=== PATIENT | female | born 1940 | race Caucasian/White ===

== ENCOUNTER → 2020-09-09 | Outpatient (CLI) | payer MEDICARE, BC, SELFPAY ==
[2020-09-09 21:30] VITALS: BMI 34.7
[2020-09-09 21:51] LABS: Absolute Lymphocyte Count 3.11 X10^3/uL (0.83-4.51); Absolute Neutrophil Count 4.5 X10^3/uL (2.0-7.7); Basophil# 0.07 X10^3/uL; Basophil% 0.8 % (0-1); Eosinophil# 0.18 X10^3/uL; Eosinophils% 2.1 % (0-5); Hematocrit 45.8 % (37-47); Hemoglobin 14.6 g/dL (12.0-15.0); Lymphocyte # 3.11 X10^3/ul (4.0); Mean Corp Hgb Conc 31.9 g/dL (32-36); Mean Corpuscular Hgb 29.4 pg (27.0-32.0); Mean Corpuscular Volume 92.2 fL (81-99); Monocyte# 0.74 X10^3/uL; Monocyte% 8.6 % (0-10); NRBC Flagged by Analyzer 0 % (0-5); Neutrophil # 4.51 X10^3/uL (2.7-7.7); Neutrophil % 52.3 % (47-70); Platelet Count 302 K/mm3 (150-450); RBC Distribution Width CV 13.2 % (11.6-14.6); RBC Distribution Width SD 44.4 fl (35.1-43.9); Red Blood Count 4.97 M/mm3 (4.2-5.4); White Blood Count 8.6 K/mm3 (4.4-11.0)
[2020-09-12 15:24] LABS: ANTINUCLEAR ANTIBODIES DIRECT Negative (Negative)
== END | disposition home or self-care (01) ==
PROVIDERS: PCP Nurse Practitioner; Visit Provider Nurse Practitioner
DX: L29.9 Pruritus, unspecified (principal); B99.9 Unspecified infectious disease
CPT/HCPCS: 85025; 86038; 86225; 86235

== ENCOUNTER → 2021-05-08 | Outpatient (CLI) | payer MEDICARE, BC, SELFPAY ==
[2021-05-08 21:35] LABS: Absolute Lymphocyte Count 2.79 X10^3/uL (0.83-4.51); Absolute Neutrophil Count 4.7 X10^3/uL (2.0-7.7); Basophil# 0.11 X10^3/uL; Basophil% 1.3 % (0-1); Eosinophil# 0.17 X10^3/uL; Hematocrit 46.3 % (37-47); Hemoglobin 15.2 g/dL (12.0-15.0); Lymphocyte # 2.79 X10^3/ul (0.83-4.51); Lymphocyte % 32.3 % (19-41); Mean Corp Hgb Conc 32.8 g/dL (32-36); Mean Corpuscular Hgb 30.2 pg (27.0-32.0); Mean Corpuscular Volume 91.9 fL (81-99); Mean Platelet Vol. 11.8 fl (6.2-12.0); Monocyte# 0.82 X10^3/uL; Monocyte% 9.5 % (0-10); NRBC Flagged by Analyzer 0 % (0-5); Neutrophil # 4.71 X10^3/uL (2.7-7.7); Neutrophil % 54.6 % (47-70); Platelet Count 268 K/mm3 (150-450); Red Blood Count 5.04 M/mm3 (4.2-5.4); White Blood Count 8.6 K/mm3 (4.4-11.0)
[2021-05-08 21:53] LABS: ALB/GLOB Ratio 0.9 RATIO (0.9-2.4); AST(SGOT) 24 U/L (15-37); Alanine Aminotransfer ALT/SGPT 30 U/L (13-56); Albumin, Serum 3.6 g/dL (3.2-5.0); Alkaline Phosphatase 87 U/L (45-117); Anion Gap 6 (5-15); BUN 25 mg/dL (7-18); Calcium,Total 9.8 mg/dL (8.5-10.1); Chloride 103 mmol/L (98-107); Cholesterol 168 mg/dL (200); Creatinine, Serum 1.04 mg/dL (0.55-1.02); EST Glomerular Filtration Rate 54 mL/min (>60); Est Glom Filt Rate - Afr Amer 66 mL/min (>60); Globulin 4.2 g/dL (2.2-4.2); Glucose 106 mg/dL (74-106); High Density Lipoprotein 62 mg/dL; Protein, Total 7.8 g/dL (6.4-8.2); Sodium Level 138 mmol/L (136-145); Triglycerides 264 mg/dL; Very Low Density Lipoprotein 53 mg/dL (5-40)
== END | disposition home or self-care (01) ==
PROVIDERS: PCP Nurse Practitioner; Referring Provider Nurse Practitioner; Visit Provider Nurse Practitioner
DX: I10 Essential (primary) hypertension (principal); E78.5 Hyperlipidemia, unspecified
CPT/HCPCS: 80053; 80061; 85025

== ENCOUNTER → 2022-05-04 | Outpatient (CLI) | payer MEDICARE, BC, SELFPAY ==
[2022-05-04 22:01] LABS: Absolute Lymphocyte Count 3.17 X10^3/uL (0.83-4.51); Absolute Neutrophil Count 3.9 X10^3/uL (2.0-7.7); Basophil# 0.08 X10^3/uL; Eosinophil# 0.16 X10^3/uL; Hematocrit 47.2 % (37-47); Hemoglobin 14.9 g/dL (12.0-15.0); Lymphocyte # 3.17 X10^3/ul (0.83-4.51); Lymphocyte % 38.8 % (19-41); Mean Corp Hgb Conc 31.6 g/dL (32-36); Mean Corpuscular Hgb 29.4 pg (27.0-32.0); Mean Corpuscular Volume 93.1 fL (81-99); Mean Platelet Vol. 11.1 fl (6.2-12.0); Monocyte# 0.84 X10^3/uL; Monocyte% 10.3 % (0-10); NRBC Flagged by Analyzer 0 % (0-5); Neutrophil % 47.7 % (47-70); Platelet Count 304 K/mm3 (150-450); RBC Distribution Width CV 13.5 % (11.6-14.6); RBC Distribution Width SD 45.3 fl (35.1-43.9); Red Blood Count 5.07 M/mm3 (4.2-5.4); White Blood Count 8.2 K/mm3 (4.4-11.0)
[2022-05-04 22:12] LABS: ALB/GLOB Ratio 0.9 RATIO (0.9-2.4); AST(SGOT) 23 U/L (15-37); Alanine Aminotransfer ALT/SGPT 34 U/L (13-56); Albumin, Serum 3.7 g/dL (3.2-5.0); Alkaline Phosphatase 79 U/L (45-117); Anion Gap 7 (5-15); BUN 16 mg/dL (7-18); BUN/Creat Ratio 19.3 RATIO (10-20); Calcium,Total 9.4 mg/dL (8.5-10.1); Chloride 104 mmol/L (98-107); Cholesterol 169 mg/dL (200); Creatinine, Serum 0.83 mg/dL (0.55-1.02); EST Glomerular Filtration Rate 71 mL/min (>60); Est Glom Filt Rate - Afr Amer 85 mL/min (>60); Globulin 4.1 g/dL (2.2-4.2); Glucose 77 mg/dL (74-106); High Density Lipoprotein 67 mg/dL; Potassium 4.4 mmol/L (3.5-5.1); Protein, Total 7.8 g/dL (6.4-8.2); Sodium Level 142 mmol/L (136-145); Triglycerides 112 mg/dL; Very Low Density Lipoprotein 22 mg/dL (5-40)
[2022-05-11 11:49] LABS: Vitamin D 1,25-Dihydroxy 36.5 pg/mL (24.8-81.5)
== END | disposition home or self-care (01) ==
PROVIDERS: PCP Nurse Practitioner; Visit Provider Nurse Practitioner
DX: E78.5 Hyperlipidemia, unspecified (principal); I10 Essential (primary) hypertension; L29.8 Other pruritus
CPT/HCPCS: 80053; 80061; 82652; 85025

== ENCOUNTER → 2023-04-08 | Outpatient (CLI) | payer MEDICARE, BC, SELFPAY ==
[2023-04-08 20:48] LABS: Absolute Lymphocyte Count 3.43 X10^3/uL (0.83-4.51); Absolute Neutrophil Count 4.6 X10^3/uL (2.0-7.7); Basophil# 0.07 X10^3/uL; Basophil% 0.8 % (0-1); Eosinophil# 0.17 X10^3/uL; Eosinophils% 1.9 % (0-5); Hematocrit 46.8 % (37-47); Hemoglobin 14.7 g/dL (12.0-15.0); Lymphocyte # 3.43 X10^3/ul (0.83-4.51); Lymphocyte % 37.8 % (19-41); Mean Corp Hgb Conc 31.4 g/dL (32-36); Mean Corpuscular Hgb 29.1 pg (27.0-32.0); Mean Corpuscular Volume 92.5 fL (81-99); Monocyte# 0.82 X10^3/uL; NRBC Flagged by Analyzer 0 % (0-5); Neutrophil # 4.56 X10^3/uL (2.7-7.7); Neutrophil % 50.3 % (47-70); Platelet Count 299 K/mm3 (150-450); RBC Distribution Width CV 13.1 % (11.6-14.6); RBC Distribution Width SD 44.4 fl (35.1-43.9); Red Blood Count 5.06 M/mm3 (4.2-5.4); White Blood Count 9.1 K/mm3 (4.4-11.0)
[2023-04-08 21:04] LABS: ALB/GLOB Ratio 0.9 RATIO (0.9-2.4); AST(SGOT) 19 U/L (15-37); Alanine Aminotransfer ALT/SGPT 31 U/L (13-56); Albumin, Serum 3.5 g/dL (3.2-5.0); Alkaline Phosphatase 90 U/L (45-117); Anion Gap 5 (5-15); BUN 20 mg/dL (7-18); BUN/Creat Ratio 21.2 RATIO (10-20); Calcium,Total 9.1 mg/dL (8.5-10.1); Chloride 103 mmol/L (98-107); Cholesterol 160 mg/dL (200); Creatinine, Serum 0.94 mg/dL (0.55-1.02); EST Glomerular Filtration Rate 61 mL/min (>60); Est Glom Filt Rate - Afr Amer 73 mL/min (>60); Glucose 132 mg/dL (74-106); High Density Lipoprotein 60 mg/dL; Potassium 3.6 mmol/L (3.5-5.1); Protein, Total 7.5 g/dL (6.4-8.2); Sodium Level 139 mmol/L (136-145); Triglycerides 170 mg/dL; Very Low Density Lipoprotein 34 mg/dL (5-40)
== END | disposition home or self-care (01) ==
PROVIDERS: PCP Nurse Practitioner; Referring Provider Nurse Practitioner; Visit Provider Nurse Practitioner
DX: I10 Essential (primary) hypertension (principal); E78.5 Hyperlipidemia, unspecified; L29.8 Other pruritus
CPT/HCPCS: 80053; 80061; 85025

== ENCOUNTER → 2024-07-13 | Outpatient (CLI) | payer MEDICARE, BC, SELFPAY ==
[2024-07-14 01:30] LABS: Absolute Lymphocyte Count 2.61 X10^3/uL (0.83-4.51); Absolute Neutrophil Count 4.4 X10^3/uL (2.0-7.7); Basophil% 1.2 % (0-1); Eosinophil# 0.15 X10^3/uL; Eosinophils% 1.9 % (0-5); Hematocrit 44.7 % (37-47); Hemoglobin 14.4 g/dL (12.0-15.0); Lymphocyte # 2.61 X10^3/ul (0.83-4.51); Lymphocyte % 32.6 % (19-41); Mean Corp Hgb Conc 32.2 g/dL (32-36); Mean Corpuscular Hgb 29.5 pg (27.0-32.0); Mean Corpuscular Volume 91.6 fL (81-99); Mean Platelet Vol. 11.9 fl (6.2-12.0); Monocyte# 0.76 X10^3/uL; Monocyte% 9.5 % (0-10); NRBC Flagged by Analyzer 0.2 % (0-5); Neutrophil # 4.37 X10^3/uL (2.7-7.7); Neutrophil % 54.6 % (47-70); Platelet Count 254 K/mm3 (150-450); RBC Distribution Width CV 12.8 % (11.6-14.6); RBC Distribution Width SD 42.9 fl (35.1-43.9); Red Blood Count 4.88 M/mm3 (4.2-5.4)
[2024-07-14 01:43] LABS: AST(SGOT) 25 U/L (15-37); Alanine Aminotransfer ALT/SGPT 31 U/L (13-56); Albumin, Serum 3.8 g/dL (3.2-5.0); Alkaline Phosphatase 72 U/L (45-117); Anion Gap 7 (5-15); BUN 21 mg/dL (7-18); BUN/Creat Ratio 24.2 RATIO (10-20); Calcium,Total 9.9 mg/dL (8.5-10.1); Chloride 104 mmol/L (98-107); Cholesterol 179 mg/dL (200); Creatinine, Serum 0.87 mg/dL (0.55-1.02); EST Glomerular Filtration Rate 67 mL/min (>60); Est Glom Filt Rate - Afr Amer 80 mL/min (>60); Globulin 3.9 g/dL (2.2-4.2); Glucose 101 mg/dL (74-106); High Density Lipoprotein 67 mg/dL; Potassium 4.2 mmol/L (3.5-5.1); Protein, Total 7.7 g/dL (6.4-8.2); Sodium Level 139 mmol/L (136-145); Triglycerides 186 mg/dL; Very Low Density Lipoprotein 37 mg/dL (5-40)
== END | disposition home or self-care (01) ==
PROVIDERS: PCP Nurse Practitioner; Referring Provider Nurse Practitioner; Visit Provider Nurse Practitioner
DX: E78.2 Mixed hyperlipidemia (principal); I10 Essential (primary) hypertension
CPT/HCPCS: 80053; 80061; 85025

== ENCOUNTER → 2025-05-13 | Outpatient (CLI) | payer MEDICARE, BC, SELFPAY ==
--- OUTSIDE RECORDS SUMMARY | 2025-05-13 22:25 | XMS RPT_ITS | CCD ---
Author Organization [facility] Care Team Providers Care Windows Consultant Name Role Phone HUMBERTO, CHUCK Unavailable Unavailable HUMBERTO, CHUCK Unavailable Unavailable HUMBERTO, CHUCK Unavailable Unavailable HUMBERTO, CHUCK Unavailable Unavailable [place] ARTIFICIAL INTELLIGENCE SPECIALIST, Jeffrey Referring Unavailable [place] ARTIFICIAL INTELLIGENCE SPECIALIST, Jeffrey Attending Unavailable [place] DELANEY, Jeffrey Primary Care Unavailable ADALID REYES Attending UnaJEFFREY Padilla Primary Care Unavailable Allergies Allergy Classification Reported Allergen(s) Allergy Type Date of Onset Reaction(s) Facility (2 sources) Lisinopril Drug Allergy 1 cough [facility] (1 source) Seafood Allergy to substance 1 vomits [facility] Work Phone: (2 sources) Fish derivative; Translations: [fish derived] Propensity to adverse reactions 2 Vomiting [facility] (3 sources) Shellfish; Translations: [shellfish derived] Propensity to adverse reactions 1 [facility] (1 source) Lisinopril Drug Allergy 1 [facility] Repository Medications Current Medications Medication Drug Class(es) Dates Sig (Normalized) Sig (Original) acyclovir 800 mg oral tablet (5 sources) Herpesvirus Nucleoside Analog DNA Polymerase Inhibitor, Herpes Simplex Virus Nucleoside Analog DNA Polymerase Inhibitor, Herpes Zoster Virus Nucleoside Analog DNA Polymerase Inhibitor Start: 05-08-2021 End: 04-08-2023 take 800 mg by mouth twice daily Acyclovir Active 800 MG PO TWICE A DAY April 08, 2023 6:03pm ascorbic acid 500 mg oral capsule (2 sources) Vitamin C Start: 09-09-2020 Ascorbic Acid (Vitamin C) Active MG PO September 08, 2020 11:00pm atorvastatin 20 mg oral tablet (7 sources) HMG-CoA Reductase Inhibitor Start: 09-09-2020 End: 04-08-2023 take 20 mg by mouth at bedtime Atorvastatin Active 20 MG PO AT BEDTIME April 08, 2023 6:03pm biotin 1 mg chewable tablet (2 sources) Start: 05-04-2022 take 1000 ug by mouth once daily Biotin Active 1000 MCG PO DAILY May 04, 2022 12:00am calcium carbonate 1500 mg oral tablet (2 sources) Start: 09-09-2020 take 1 tablet by mouth once daily Calcium Carbonate (Calcium 600) 600 mg calcium (1,500 mg) tablet Active 600 MG PO DAILY September 08, 2020 11:00pm cholecalciferol 0.05 mg oral capsule (2 sources) Vitamin D Start: 09-09-2020 take 50 ug by mouth once daily Cholecalciferol (Vitamin D3) Active 50 MCG PO DAILY September 08, 2020 11:00pm hydroCHLOROthiazide 12.5 mg / losartan potassium 100 mg oral tablet (7 sources) Thiazide Diuretic, Angiotensin 2 Receptor Maile Start: 09-09-2020 End: 04-08-2023 take 1 tablet by mouth once daily Losartan-Hydrochlor othiazide Active 1 TABLET PO DAILY April 08, 2023 6:03pm lysine 500 mg oral tablet (2 sources) Start: 09-09-2020 take 500 mg by mouth once daily Lysine Active 500 MG PO DAILY September 08, 2020 11:00pm Vitamin B Complex (B Complex-Vitamin B12) tablet (2 sources) Start: 09-09-2020 take 1 tablet by mouth once daily Vitamin B Complex (B Complex-Vitamin B12) tablet Active 1 TABLET PO DAILY September 08, 2020 11:00pm Completed/Discontinued Medications Medication Drug Class(es) Dates Sig (Normalized) Sig (Original) predniSONE 10 mg oral tablet (2 sources) Start: 09-09-2020 End: 09-13-2020 Prednisone Discontinued 20 MG PO TWICE A DAY 03 10September 08, 2020 11:00pm September 12, 2020 11:03pm 2 po bid 4D,1 po bid for 4 D, 1 po qd for 4D 1/2 po qd for2 D Problems Active Problems Problem Classification Problem Date Documented Date Episodic/Chronic Allergic reactions (2 sources) Eczema; Translations: [Dermatitis, unspecified] 09-09-2020 Episodic Coronary atherosclerosis and other heart disease (2 sources) Coronary atherosclerosis and other heart disease Onset: 05-04-2017 Disorders of lipid metabolism (4 sources) Hyperlipidemia, unspecified; Translations: [Hyperlipidemia] Onset: 05-04-2017 04-08-2023 Chronic Essential hypertension (2 sources) Hypertensive disorder; Translations: [Essential (primary) hypertension] 04-08-2023 Chronic Essential hypertension (1 source) Essential hypertension Onset: 11-28-2017 Immunizations and screening for infectious disease (2 sources) Needs influenza immunization; Translations: [Encounter for immunization] 03-16-2021 Episodic Other inflammatory condition of skin (2 sources) Pruritic rash; Translations: [Other pruritus] 09-09-2020 Episodic Spondylosis; intervertebral disc disorders; other back problems (2 sources) Occipital neuralgia; Translations: [Spinal stenosis, cervical region] Onset: 02-24-2025 Episodic Systemic lupus erythematosus and connective tissue disorders (2 sources) Systemic lupus erythematosus; Translations: [Systemic lupus erythematosus, unspecified] 09-09-2020 Chronic Unclassified (2 sources) Encntr for general adult medical exam w/o abnormal findings / Z00.00(ICD-9) Onset: 11-28-2017 Past or Other Problems Problem Classification Problem Date Documented Da te Episodic/Chronic Unclassified (1 source) Encntr for general adult medical exam w/o abnormal findings; Translations: [Encntr for general adult medical exam w/o abnormal findings] Onset: 11-28-2017 Results Test Name Value Interpretation Reference Range Facility CT BRAIN WO IVCONon 02-25-20 CT BRAIN WO IVCON * * *Final Report* * * DATE OF EXAM: Feb 24 2025 9:07PM [facility] 0504 - CT BRAIN WO IVCON / PROCEDURE REASON: Headache, sudden, severe * * * * Physician Interpretation * * * * EXAMINATION: CT CERVICAL SPINE WO IVCON, CT BRAIN WO IVCON CLINICAL HISTORY: Spinal stenosis, cervical, (occipital neuralgia) (accession [id number]), Headache, sudden, severe, severe right sided occiptal pain x 3 days, (occipital neuralgia) (accession [id number]) TECHNIQUE: Serial axial images without IV contrast were obtained from the vertex to the cervicothoracic junction. CT Radiation dose: Integrated Dose-Length Product (DLP) for this visit = 453.75 (accession [id number]), 1413.18 (accession [id number]) mGy*cm CT Dose Reduction Employed: No dose reduction techniques were required COMPARISON: None. RESULT: Attenuation and motion artifact limits evaluation some of the images. HEAD: Acute change: No evidence of an acute infarct or other acute parenchymal process. Hemorrhage: None visible. Mass Lesion / Mass Effect: There is no evidence of an intracranial mass or extraaxial fluid collection. No significant mass effect. Chronic change: Scattered patchy foci of low attenuation are present within supratentorial white matter which is a nonspecific finding but likely represents mild microvascular ischemia. Parenchyma: There is no significant volume loss. Ventricles: The ventricles are within normal limits of size and configuration for age. Paranasal sinuses and skull base: The visualized paranasal sinuses are grossly clear. The skull base and imaged soft tissues are unremarkable. CERVICAL SPINE: Motion artifact degrades detailed evaluation in the upper cervical spine. Alignment: Alignment is anatomic. Craniocervical junction: Craniocervical junction is normal. Osseous structures/fracture: No evidence of a lytic or blastic process in the visualized spine. No acute fractures are evident allowing for motion artifact. Cervical soft tissues: No acute findings. Left thyroid goiter. Degenerative changes: Moderate multilevel degenerative change with varying levels of spinal canal stenosis, up to moderate C6-7. Multilevel spondylotic neural foraminal narrowing; moderate left C4-5, right C5-6 IMPRESSION: No acute intracranial abnormality. Motion degraded cervical spine exam without convincing evidence of acute abnormality. 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 Date/Time: Feb 24 2025 9:28P Dictated by : NILSON ARMENDARIZ MD This examination was interpreted and the report reviewed and electronically signed by: NILSON ARMENDARIZ MD on Feb 24 2025 9:40PM EST [id number] CN Normal [facility] CT CERVICAL SPINE WO IVCONon 02-24-2025 CT CERVICAL SPINE WO IVCON * * *Final Report* * * DATE OF EXAM: Feb 24 2025 9:07PM [facility] 0505 - CT CERVICAL SPINE WO IVCON / PROCEDURE REASON: Spinal stenosis, cervical * * * * Physician Interpretation * * * * EXAMINATION: CT CERVICAL SPINE WO IVCON, CT BRAIN WO IVCON CLINICAL HISTORY: Spinal stenosis, cervical, (occipital neuralgia) (accession [id number]), Headache, sudden, severe, severe right sided occiptal pain x 3 days, (occipital neuralgia) (accession [id number]) TECHNIQUE: Serial axial images without IV contrast were obtained from the vertex to the cervicothoracic junction. CT Radiation dose: Integrated Dose-Length Product (DLP) for this visit = 453.75 (accession [id number]), 1413.18 (accession [id number]) mGy*cm CT Dose Reduction Employed: No dose reduction techniques were required COMPARISON: None. RESULT: Attenuation and motion artifact limits evaluation some of the images. HEAD: Acute change: No evidence of an acute infarct or other acute parenchymal process. Hemorrhage: None visible. Mass Lesion / Mass Effect: There is no evidence of an intracranial mass or extraaxial fluid collection. No significant mass effect. Chronic change: Scattered patchy foci of low attenuation are present within supratentorial white matter which is a nonspecific finding but likely represents mild microvascular ischemia. Parenchyma: There is no significant volume loss. Ventricles: The ventricles are within normal limits of size and configuration for age. Paranasal sinuses and skull base: The visualized paranasal sinuses are grossly clear. The skull base and imaged soft tissues are unremarkable. CERVICAL SPINE: Motion artifact degrades detailed evaluation in the upper cervical spine. Alignment: Alignment is anatomic. Craniocervical junction: Craniocervical junction is normal. Osseous structures/fracture: No evidence of a lytic or blastic process in the visualized spine. No acute fractures are evident allowing for motion artifact. Cervical soft tissues: No acute findings. Left thyroid goiter. Degenerative changes: Moderate multilevel degenerative change with varying levels of spinal canal stenosis, up to moderate C6-7. Multilevel spondylotic neural foraminal narrowing; moderate left C4-5, right C5-6 IMPRESSION: No acute intracranial abnormality. Motion degraded cervical spine exam without convincing evidence of acute abnormality. 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 She has been taking tylenol and ibuprofen and home that seem to help, a little with pain, but pain is now more intense and these episodes are happening more frequently. Patient localizes pain behind right ear. On assessment, is somewhat tender to area with redness under hair in that area but no obvious signs of rash or blister. Denies n/v/fevers/chills. VSS. Daughter at bedside. Normal [facility] ED PROV NOTEon 02-24-2025 ED PROV NOTE HNO ID: [id number] Author: ADALID REYES MD Service: Emergency Medicine Author Type: Physician Type: ED Provider Notes Filed: 02/25/2025 02:48 Note Text: ED Provider Note Patient Name: Antonia Thomson : 1940 SERVICE DATE: 02/24/25 History Patient presents with: Head Pain Patient presents to the ER with her daughter, with concerns of a right posterior neck pain. Patient does not take blood thinners. No trauma or injuries reported and patient's never had symptoms like this before. For the past 3 days, patient had very sharp, stabbing, electrical-like shooting pains in the back of her neck posterior head sometimes radiating around to her jaw. These seem to occur in paroxysms, and patient does not know what causes them. No dental pain, patient wears hearing aids without concerns or complaints. Patient does have some relief with Tylenol, Motrin last dose 3 PM of Tylenol today. Head Injury Location: Occipital Time since incident: 3 days Pain details: Quality: Sharp and stabbing Radiates to: upper head and occasionally the jaw. 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 Social History[1] ALLERGIES Allergen Reactions Shellfish Derived GI Upset Review of Systems HENT: Negative for hearing loss. Neurological: Negative for loss of consciousness, numbness and headaches. All other systems reviewed and are negative. Physical Exam Vitals [02/24/25 1936] BP Pulse Temp Temp src Resp SpO2 Weight Height 162/61 89 36.8 ?C (98.2 ?F) Temporal 16 (!) 94 % 89.9 kg (198 lb 3.2 oz) -- Physical Exam Vitals and nursing note reviewed. Constitutional: General: She is not in acute distress. Appearance: Normal appearance. She is not ill-appearing or toxic-appearing. HENT: Head: Normocephalic and atraumatic. Right Ear: Tympanic membrane, ear canal and external ear normal. There is no impacted cerumen. Ears: Comments: Right hearing aid is removed, tympanic membranes intact, no external canal swelling erythema no mastoid tenderness Nose: Nose normal. No congestion or rhinorrhea. Eyes: General: Right eye: No discharge. Left eye: No discharge. Extraocular Movements: Extraocular movements intact. Pulmonary: Effort: No respiratory distress. Musculoskeletal: Cervical back: Normal range of motion and neck supple. No rigidity or tenderness. Lymphadenopathy: Cervical: No cervical adenopathy. Skin: General: Skin is warm and dry. Comments: Patient has very mild area of erythema, posterior scalp and at the hairline, however there is no vesicular lesions, no papules, no shingles type lesions, no obvious masses, no breaks in the skin neck is supple no cervical lymphadenopathy Neurological: General: No focal deficit present. Mental Status: She is alert and oriented to person, place, and time. Mental status is at baseline. Comments: Symmetric face and smile Patient has strong right upper extremity muscle strength good range of motion no drift distal intact handgrip strength Psychiatric: Mood and Affect: Mood normal. Behavior: Behavior normal. Diagnostic Testing ED Labs Ordered and Reviewed - No data to display Procedures ED Course / Clinical Impression Clinical Impressions as of 02/25/25 0246 Occipital neuralgia of right side Spinal stenosis of cervical region MDM / Disposition / Plan 84-year-old female does not take blood thinners, presents the emergency department with concerns over right sided posterior occipital stabbing-like pain for the past 2 to 3 days. Patient has discrete paroxysms of these attacks, which appears consistent with occipital neuralgia. Patient had some relief with Motrin, Tylenol at home and will continue this. No trauma no strokelike conditions are appreciated however with patient's sudden onset of symptoms 3 days ago, 89-year-old female I am obtaining imaging of the head and neck for other etiologies 2:[address] imaging: Osseous structures/fracture: No evidence of a lytic or blastic process in the visualized spine. No acute fractures are evident allowing for motion artifact. Cervical soft tissues: No acute findings. Left thyroid goiter. Degenerative changes: Moderate multilevel degenerative change with varying levels of spinal canal stenosis, up to moderate C6-7. Multilevel spondylotic neural foraminal narrowing; moderate left C4-5, right C5-6 On serial reevaluations in the emergency department, patient did appear to have decreased pa (more content not included)... Normal [facility] CBC W/Diff, Automatedon 02-0 8-2024 Absolute Lymph 2.61 X10 3/uL Normal 0.83-4.51 [facility] Comment on above: Performed By: #### L 500.4100, L100.0100, L500.4050 #### [facility] Laboratory [address] [place], [address] Absolute Neut 4.4 X10 3/uL Normal 2.0-7.7 [facility] Comment on above: Performed By: #### L 500.4100, L100.0100, L500.4050 #### [facility] [address] [place], [address] Basophils/100 WBC (Bld) 1.2 % High 0-1 [facility] Comment on above: Performed By: #### L 500.4100, L100.0100, L500.4050 #### [facility] [address] [place], [address] Eosinophils/100 WBC (Bld) 1.9 % Normal 0-5 [facility] Comment on above: Performed By: #### L 500.4100, L100.0100, L500.4050 #### [facility] [address] [place], [address] Erythrocyte distribution width (RBC) [Ratio] 12.8 % Normal 11.6-14.6 [facility] Comment on above: Performed By: #### L 500.4100, L100.0100, L500.4050 #### [facility] [address] [place], [address] Hematocrit (Bld) [Volume fraction] 44.7 % Normal 37-47 [facility] Comment on above: Performed By: #### L 500.4100, L100.0100, L500.4050 #### [facility] [address] [place], [address] Hemoglobin (Bld) [Mass/Vol] 14.4 g/dL Normal 12.0-15.0 [facility] Comment on above: Performed By: #### L 500.4100, L100.0100, L500.4050 #### [facility] [address] [place], [address] IG% 0.200 Normal 0.0-0.9 [facility] Comment on above: Result Comment: IG% - Immature Granulocytes (promyelocytes, myelocytes and metamyelocytes) > 1% indicates that a LEFT SHIFT is Present. Performed By: #### L 500.4100, L100.0100, L500.4050 #### [facility] [address] [place], [address] Lymphocytes/100 WBC (Bld) 32.6 % Normal 19-41 [facility] Comment on above: Performed By: #### L 500.4100, L100.0100, L500.4050 #### [facility] [address] [place], [address] MCH (RBC) [Entitic mass] 29.5 pg Normal 27.0-32.0 [facility] Comment on above: Performed By: #### L 500.4100, L100.0100, L500.4050 #### [facility] [address] [place], [address] MCHC (RBC) [Mass/Vol] 32.2 g/dL Normal 32-[address] [facility] Comment on above: Performed By: #### L 500.4100, L100.0100, L500.4050 #### [facility] [address] [place], [address] MCV (RBC) [Entitic vol] 91.6 fL Normal 81-99 [facility] Comment on above: Performed By: #### L 500.4100, L100.0100, L500.4050 #### [facility] [address] [place], [address] Monocytes/100 WBC (Bld) 9.5 % Normal 0-10 [facility] Comment on above: Performed By: #### L 500.4100, L100.0100, L500.4050 #### [facility] [address] [place], [address] Neutrophils/100 WBC (Bld) 54.6 % Normal 47-70 [facility] Comment on above: Performed By: #### L 500.4100, L100.0100, L500.4050 #### [facility] [address] [place], [address] Nucleated RBC (Bld) [#/Vol] 0.2 10*3/uL Normal 0-5 [facility] Comment on above: Performed By: #### L 500.4100, L100.0100, L500.4050 #### [facility] [address] [place], [address] Platelet mean volume (Bld) [Entitic vol] 11.9 fL Normal 6.2-12.0 [facility] Comment on above: Performed By: #### L 500.4100, L100.0100, L500.4050 #### [facility] [address] [place], [address] Platelets (Bld) [#/Vol] 254 10*3/uL Normal 150-450 [facility] Comment on above: Performed By: #### L 500.4100, L100.0100, L500.4050 #### [facility] [address] [place], [address] RBC (Bld) [#/Vol] 4.88 10*6/uL Normal 4.2-5.4 [facility] Comment on above: Performed By: #### L 500.4100, L100.0100, L500.4050 #### [facility] [address] [place], [address] RDW SD 42.9 fl Normal 35.1-43.9 [facility] Comment on above: Performed By: #### L 500.4100, L100.0100, L500.4050 #### [facility] [address] [place], [address] WBC (Bld) [#/Vol] 8.0 10*3/uL Normal 4.4-11.0 [facility] Comment on above: Performed By: #### L 500.4100, L100.0100, L500.4050 #### [facility] [address] [place], [address] Comprehensive Metabolic Prof [facility] 07-14-2024 Albumin [Mass/Vol] 3.8 g/dL Normal 3.2-5.0 [facility] Comment on above: Performed By: #### L 500.4100, L100.0100, L500.4050 #### [facility] [address] [place], [address] Albumin/Globulin [Mass ratio] 1.0 {ratio} Normal 0.9-2.4 [facility] Comment on above: Performed By: #### L 500.4100, L100.0100, L500.4050 #### [facility] [address] [place], [address] ALK P 72 U/L Normal 45-117 [facility] Comment on above: Performed By: #### L 500.4100, L100.0100, L500.4050 #### [facility] [address] [place], [address] ALT [Catalytic activity/Vol] 31 U/L Normal 13-56 [facility] Comment on above: Performed By: #### L 500.4100, L100.0100, L500.4050 #### [facility] [address] [place], [address] AST [Catalytic activity/Vol] 25 U/L Normal 15-37 [facility] Comment on above: Performed By: #### L 500.4100, L100.0100, L500.4050 #### [facility] [address] [place], [address] Bilirubin [Mass/Vol] 0.60 mg/dL Normal 0.20-1.00 [facility] Comment on above: Result Comment: For patients on eltrombopag therapy, use of Dimension [place] TBIL is not recommended. Performed By: #### L 500.4100, L100.0100, L500.4050 #### [facility] [address] [place], [address] BUN/CRE 24.2 RATIO High 10-20 [facility] Comment on above: Performed By: #### L 500.4100, L100.0100, L500.4050 #### [facility] [address] [place], [address] CA,Total 9.9 mg/dL Normal 8.5-10.1 [facility] Comment on above: Performed By: #### L 500.4100, L100.0100, L500.4050 #### [facility] [address] [place], [address] Chloride [Moles/Vol] 104 mmol/L Normal 98-107 [facility] Comment on above: Performed By: #### L 500.4100, L100.0100, L500.4050 #### [facility] [address] [place], [address] CO2 [Moles/Vol] 28.0 mmol/L Normal 21.0-32.0 [facility] Comment on above: Performed By: #### L 500.4100, L100.0100, L500.4050 #### [facility] [address] [place], [address] Creatinine [Mass/Vol] 0.87 mg/dL Normal 0.55-1.[address] [facility] Comment on above: Result Comment: The validity of the calculated GFR GFRAA in patients over 70 years has not been determined. Clinical correlation is essential. Performed By: #### L 500.4100, L100.0100, L500.4050 #### [facility] [address] [place], [address] EST GFR - AA 80 mL/min Normal >60 [facility] Comment on above: Result Comment: Afri can [place] GFR Calc Performed By: #### L 500.4100, L100.0100, L500.4050 #### [facility] [address] [place], [address] GAP 7 Normal 5-15 [facility] Comment on above: Performed By: #### L 500.4100, L100.0100, L500.4050 #### [facility] [address] [place], [address] GFR/1.73 sq M.predicted among non-blacks MDRD (S/P/Bld) [Vol rate/Area] 67 mL/min/{1.73_m2} Normal >60 [facility] Comment on above: Result Comment: Non- GFR Calc Performed By: #### L 500.4100, L100.0100, L500.4050 #### [facility] [address] [place], [address] Globulin (S) [Mass/Vol] 3.9 g/dL Normal 2.2-4.2 [facility] Comment on above: Performed By: #### L 500.4100, L100.0100, L500.4050 #### [facility] [address] [place], [address] Glucose [Mass/Vol] 101 mg/dL Normal 74-106 [facility] Comment on above: Result Comment: Fast ing Glucose result from 100 to 125 mg/dL suggests IMPAIRED HOMEOSTASIS per A.D.A. criteria. Performed By: #### L 500.4100, L100.0100, L500.4050 #### [facility] [address] [place], [address] Potassium [Moles/Vol] 4.2 mmol/L Normal 3.5-5.[address] [facility] Comment on above: Performed By: #### L 500.4100, L100.0100, L500.4050 #### [facility] [address] [place], [address] Sodium [Moles/Vol] 139 mmol/L Normal 136-145 [facility] Comment on above: Performed By: #### L 500.4100, L100.0100, L500.4050 #### [facility] [address] [place], [address] T PROT 7.7 g/dL Normal 6.4-8.2 [facility] Comment on above: Performed By: #### L 500.4100, L100.0100, L500.4050 #### [facility] [address] [place], [address] Urea nitrogen [Mass/Vol] 21 mg/dL High 7-18 [facility] Comment on above: Performed By: #### L 500.4100, L100.0100, L500.4050 #### [facility] [address] [place], [address] Lipid Profileon 07-14-2024 Cholesterol [Mass/Vol] 179 mg/dL Normal 200 [facility] Comment on above: Result Comment: <200 mg/dL Desirable 200-240 mg/dL Borderline >240 mg/dL High Risk Performed By: #### L 500.4100, L100.0100, L500.4050 #### [facility] [address] [place] [place], [address] Cholesterol in HDL [Mass/Vol] 67 mg/dL Normal [facility] Comment on above: Result Comment: The drugs N-Acetylcysteine and Metamizole may falsely depress this assay. Reference Range HDL <40 mg/dL Low HDL Cholesterol HDL >or= 60 mg/dL High HDL Cholesterol Performed By: #### L 500.4100, L100.0100, L500.4050 #### [facility] [address] [place], [address] Cholesterol in LDL [Mass/Vol] 75 mg/dL Normal 0-130 [facility] Comment on above: Performed By: #### L 500.4100, L100.0100, L500.4050 #### [facility] [address] [place], [address] Cholesterol in VLDL [Mass/Vol] 37 mg/dL Normal 5-40 [facility] Comment on above: Performed By: #### L 500.4100, L100.0100, L500.4050 #### [facility] [address] [place], [address] Triglyceride [Mass/Vol] 186 mg/dL Normal [facility] Comment on above: Result Comment: The drugs N-Acetylcysteine and Metamizole may falsely depress this assay. Serum Triglycerides Reference Interval Normal <150 mg/dL Borderline high 150 - 199 mg/dL High 200 - 499 mg/dL Very High > or = 500 mg/dL Performed By: #### L 500.4100, L100.0100, L500.4050 #### [facility] [place], [address] Absolute lymphocyte countOrd ered By: Jeffrey Leiva on 04-08-2023 Lymphocytes Auto (Unsp spec) [#/Vol] 3.43 10*3/uL 0.83-4.51 [facility] Basophil percentageOrdered B y: Jeffrey Leiva on 04-08-2023 Basophils/100 WBC (Bld) 0.8 % 0-1 [facility] Bilirubin [Mass/Vol] 0.80 mg/dL 0.20-1.00 [facility] Comment on above: For patients on eltr ombopag therapy, use of Dimension [place] TBIL is not recommended. Chloride [Moles/Vol] 103 mmol/L 98-107 [facility] Cholesterol [Mass/Vol] 160 mg/dL <200 [facility] Comment on above: <200 mg/dL Desirable 200-240 mg/dL Borderline >240 mg/dL High Risk Eosinophils/100 WBC (Bld) 1.9 % 0-5 [facility] Glucose [Mass/Vol] 132 mg/dL 74-106 [facility] Comment on above: Fasting Glucose resu lt greater than or equal to 126 mg/dL suggests DIABETES MELLITUS per A.D.A. criteria. Neutrophils (Bld) [#/Vol] 4.6 10*3/uL 2.0-7.7 [facility] Neutrophils/100 WBC (Bld) 50.3 % 47-70 [facility] Potassium [Moles/Vol] 3.6 mmol/L 3.5-5.[address] [facility] Protein [Mass/Vol] 7.5 g/dL 6.4-8.2 [facility] Sodium [Moles/Vol] 139 mmol/L 136-145 [facility] Triglyceride [Mass/Vol] 170 mg/dL <199 [facility] Comment on above: The drugs N-Acetylcy steine and Metamizole may falsely depress this assay.Serum Triglycerides Reference Interval Normal <150 mg/dL Borderline high 150 - 199 mg/dL High 200 - 499 mg/dL Very High > or = 500 mg/dL WBC (Bld) [#/Vol] 9.1 10*3/uL 4.4-11.0 [facility] Blood erythrocytes count (nu mber/volume)Ordered By: Jeffrey Leiva on 04-08-2023 RBC (Bld) [#/Vol] 5.06 10*6/uL 4.2-5.4 [facility] Blood hemoglobin measurement (mass/volume)Ordered By: Jeffrey Leiva on 04-08-2023 Hemoglobin (Bld) [Mass/Vol] 14.7 g/dL 12.0-15.0 [facility] Blood lymphocytes/100 leukoc ytesOrdered By: Jeffrey Leiva on 04-08-2023 Lymphocytes/100 WBC (Bld) 37.8 % 19-41 [facility] Blood monocytes/100 leukocyt esOrdered By: Jeffrey Leiva on 04-08-2023 Monocytes/100 WBC (Bld) 9.0 % 0-10 [facility] Blood platelet mean volumeOr dered By: Jeffrey Leiva on 04-08-2023 Platelet mean volume (Bld) [Entitic vol] 11.0 fL 6.2-12.0 [facility] Determination of erythrocyte mean corpuscular volume (MCV)Ordered By: Jeffrey Leiva on 04-08-2023 MCV (RBC) [Entitic vol] 92.5 fL 81-99 [facility] Hematocrit Auto (Bld) [Volum e fraction]Ordered By: Jeffrey Leiva on 04-08-2023 Hematocrit (Bld) [Volume fraction] 46.8 % 37-47 [facility] - Chemistry and C hemistry - challengeOrdered By: Jeffrey Leiva on 04-08-2023 ALP [Catalytic activity/Vol] 90 U/L 45-117 [facility] ALT [Catalytic activity/Vol] 31 U/L 13-56 [facility] CO2 [Moles/Vol] 31.0 mmol/L 21.0-32.0 [facility] Globulin (S) [Mass/Vol] 4.0 g/dL 2.2-4.2 [facility] Urea nitrogen/Creatinine [Mass ratio] 21.2 mg/mg 10-20 [facility] - Hematology and Cell countsOrdered By: Jeffrey Leiva on 04-08-2023 Erythrocyte distribution width (RBC) [Entitic vol] 44.4 fL 35.1-43.9 [facility] Erythrocyte distribution width (RBC) [Ratio] 13.1 % 11.6-14.6 [facility] Immature granulocytes/100 WBC (Bld) 0.200 % 0.0-0.9 [facility] Comment on above: IG% - Immature Granu locytes (promyelocytes, myelocytes and metamyelocytes) > 1% indicates that a LEFT SHIFT is Present. MCH (RBC) [Entitic mass] 29.1 pg 27.0-32.0 [facility] Nucleated RBC/100 WBC (Bld) [Ratio] 0 % 0-5 [facility] MCHC Auto (RBC) [Mass/Vol]Or dered By: Jeffrey Leiva on 04-08-2023 MCHC (RBC) [Mass/Vol] 31.4 g/dL 32-[address] [facility] No Panel InformationOrdered By: Jeffrey Leiva on 04-08-2023 Estimated GFR (MDRD) Amer 73 mL/min >60 [facility] Comment on above: GFR Calc Estimated GFR (MDRD) Non-Af Amer 61 mL/min >60 [facility] Comment on above: Non- GFR Calc Platelets bldOrdered By: Silver Leiva on 04-08-2023 Platelets (Bld) [#/Vol] 299 10*3/uL 150-450 [facility] Serum or plasma albumin evan urement (mass/volume)Ordered By: Jeffrey Leiva on 04-08-2023 Albumin [Mass/Vol] 3.5 g/dL 3.2-5.0 [facility] Serum or plasma albumin/glob ulin mass ratioOrdered By: Jeffrey Leiva on 04-08-2023 Albumin/Globulin [Mass ratio] 0.9 {ratio} 0.9-2.4 [facility] Serum or plasma calcium evan urement (mass/volume)Ordered By: Jeffrey Leiva on 04-08-2023 Calcium [Mass/Vol] 9.1 mg/dL 8.5-10.1 [facility] Serum or plasma cholesterol in HDL measurement (mass/volume)Ordered By: Jeffrey Leiva on 04-08-2023 Cholesterol in HDL [Mass/Vol] 60 mg/dL >40 [facility] Comment on above: The drugs N-Acetylcy steine and Metamizole may falsely depress this assay. Reference Range HDL <40 mg/dL Low HDL Cholesterol HDL >or= 60 mg/dL High HDL Cholesterol Serum or plasma cholesterol in VLDL measurement (mass/volume)Ordered By: Jeffrey Leiva on 04-08-2023 Cholesterol in VLDL [Mass/Vol] 34 mg/dL 5-40 [facility] Serum or plasma creatinine m easurement (mass/volume)Ordered By: Jeffrey Leiva on 04-08-2023 Creatinine [Mass/Vol] 0.94 mg/dL 0.55-1.[address] [facility] Comment on above: The validity of the calculated GFR & GFRAA in patients over 70 years has not been determined. Clinical correlation is essential. Serum or plasma low density lipoprotein (LDL) cholesterol measurement (mass/volume)Ordered By: Jeffrey Leiva on 04-08-2023 Cholesterol in LDL [Mass/Vol] 66 mg/dL 0-130 [facility] Serum or plasma urea nitroge n measurement (mass/volume)Ordered By: Jeffrey Leiva on 04-08-2023 Urea nitrogen [Mass/Vol] 20 mg/dL 7-18 [facility] Thin prep Papanicolaou smear with manual screeningOrdered By: Jeffrey Leiva on 04-08-2023 Thin prep Papanicolaou smear with manual screening 19 U/L 15-37 [facility] Thin prep Papanicolaou smear with manual screening 5 5-15 [facility] Absolute lymphocyte counton 05-04-2022 Lymphocytes Auto (Unsp spec) [#/Vol] 3.17 10*3/uL 0.83-4.51 [facility] Work Phone: Basophil percentageon 2021 Basophils/100 WBC (Bld) 1.0 % 0-1 [facility] Work Phone: Bilirubin [Mass/Vol] 0.50 mg/dL 0.20-1.00 [facility] Work Phone: Comment on above: For patients on eltr ombopag therapy, use of Dimension [place] TBIL is not recommended. Chloride [Moles/Vol] 104 mmol/L 98-107 [facility] Work Phone: Cholesterol [Mass/Vol] 169 mg/dL <200 [facility] Work Phone: Comment on above: <200 mg/dL Desirable 200-240 mg/dL Borderline >240 mg/dL High Risk Eosinophils/100 WBC (Bld) 2.0 % 0-5 [facility] Work Phone: Glucose [Mass/Vol] 77 mg/dL 74-106 [facility] Work Phone: Neutrophils (Bld) [#/Vol] 3.9 10*3/uL 2.0-7.7 [facility] Work Phone: Neutrophils/100 WBC (Bld) 47.7 % 47-70 [facility] Work Phone: Potassium [Moles/Vol] 4.4 mmol/L 3.5-5.1 [facility] Work [facility]: Protein [Mass/Vol] 7.8 g/dL 6.4-8.2 [facility] Work Phone: Sodium [Moles/Vol] 142 mmol/L 136-145 [facility] Work Phone: Triglyceride [Mass/Vol] 112 mg/dL <199 [facility] Work Phone: Comment on above: The drugs N-Acetylcy steine and Metamizole may falsely depress this assay.Serum Triglycerides Reference Interval Normal <150 mg/dL Borderline high 150 - 199 mg/dL High 200 - 499 mg/dL Very High > or = 500 mg/dL WBC (Bld) [#/Vol] 8.2 10*3/uL 4.4-11.0 [facility] Work Phone: Blood erythrocytes count (nu mber/volume)on 05-04-2022 RBC (Bld) [#/Vol] 5.07 10*6/uL 4.2-5.4 [facility] Work Phone: Blood hemoglobin measurement (mass/volume)on 05-04-2022 Hemoglobin (Bld) [Mass/Vol] 14.9 g/dL 12.0-15.0 [facility] Work Phone: Blood lymphocytes/100 leukoc yteson 05-04-2022 Lymphocytes/100 WBC (Bld) 38.8 % 19-41 [facility] Work Phone: Blood monocytes/100 leukocyt eson 05-04-2022 Monocytes/100 WBC (Bld) 10.3 % 0-10 [facility] Work Phone: Blood platelet mean volumeon 05-04-2022 Platelet mean volume (Bld) [Entitic vol] 11.1 fL 6.2-12.0 [facility] Work Phone: Determination of erythrocyte mean corpuscular volume (MCV)on 05-04-2022 MCV (RBC) [Entitic vol] 93.1 fL 81-99 [facility] Work Phone: Hematocrit Auto (Bld) [Volum e fraction]on 05-04-2022 Hematocrit (Bld) [Volume fraction] 47.2 % 37-47 [facility] Work Phone: Laboratory - Chemistry and C hemistry - challengeon 05-04-2022 ALP [Catalytic activity/Vol] 79 U/L 45-117 [facility] Work Phone: ALT [Catalytic activity/Vol] 34 U/L 13-56 [facility] Work Phone: CO2 [Moles/Vol] 31.0 mmol/L 21.0-32.0 [facility] Work Phone: Globulin (S) [Mass/Vol] 4.1 g/dL 2.2-4.2 [facility] Work Phone: Urea nitrogen/Creatinine [Mass ratio] 19.3 mg/mg 10-20 [facility] Work Phone: Laboratory - Hematology and Cell countson 05-04-2022 Erythrocyte distribution width (RBC) [Entitic vol] 45.3 fL 35.1-43.9 [facility] Work Phone: Erythrocyte distribution width (RBC) [Ratio] 13.5 % 11.6-14.6 [facility] Work Phone: Immature granulocytes/100 WBC (Bld) 0.200 % 0.0-0.9 [facility] Work Phone: Comment on above: IG% - Immature Granu locytes (promyelocytes, myelocytes and metamyelocytes) > 1% indicates that a LEFT SHIFT is Present. MCH (RBC) [Entitic mass] 29.4 pg 27.0-32.0 [facility] Work Phone: Nucleated RBC/100 WBC (Bld) [Ratio] 0 % 0-5 [facility] Work Phone: MCHC Auto (RBC) [Mass/Vol]on 05-04-2022 MCHC (RBC) [Mass/Vol] 31.6 g/dL 32-[address] [facility] Work Phone: No Panel Informationon 05-04 Estimated GFR (MDRD) Amer 85 mL/min >60 [facility] Work Phone: Comment on above: GFR Calc Estimated GFR (MDRD) Non-Af Amer 71 mL/min >60 [facility] Work Phone: Comment on above: Non- GFR Calc Platelets bldon 05-04-2022 Platelets (Bld) [#/Vol] 304 10*3/uL 150-450 [facility] Work Phone: Serum or plasma albumin evan urement (mass/volume)on 05-04-2022 Albumin [Mass/Vol] 3.7 g/dL 3.2-5.0 [facility] Work Phone: Serum or plasma albumin/glob ulin mass ratioon 05-04-2022 Albumin/Globulin [Mass ratio] 0.9 {ratio} 0.9-2.4 [facility] Work Phone: Serum or plasma calcium evan urement (mass/volume)on 05-04-2022 Calcium [Mass/Vol] 9.4 mg/dL 8.5-10.1 [facility] Work Phone: Serum or plasma cholesterol in HDL measurement (mass/volume)on 05-04-2022 Cholesterol in HDL [Mass/Vol] 67 mg/dL >40 [facility] Work Phone: Comment on above: The drugs N-Acetylcy steine and Metamizole may falsely depress this assay. Reference Range HDL <40 mg/dL Low HDL Cholesterol HDL >or= 60 mg/dL High HDL Cholesterol Serum or plasma cholesterol in VLDL measurement (mass/volume)on 05-04-2022 Cholesterol in VLDL [Mass/Vol] 22 mg/dL 5-40 [facility] Work Phone: Serum or plasma creatinine m easurement (mass/volume)on 05-04-2022 Creatinine [Mass/Vol] 0.83 mg/dL 0.55-1.[address] [facility] Work Phone: Comment on above: The validity of the calculated GFR & GFRAA in patients over 70 years has not been determined. Clinical correlation is essential. Serum or plasma low density lipoprotein (LDL) cholesterol measurement (mass/volume)on 05-04-2022 Cholesterol in LDL [Mass/Vol] 80 mg/dL 0-130 [facility] Work Phone: Serum or plasma urea nitroge n measurement (mass/volume)on 05-04-2022 Urea nitrogen [Mass/Vol] 16 mg/dL 7-18 [facility] Work Phone: Thin prep Papanicolaou smear with manual screeningon 05-04-2022 Thin prep Papanicolaou smear with manual screening 23 U/L 15-37 [facility] Work Phone: Thin prep Papanicolaou smear with manual screening 7 5-15 [facility] Work Phone: CNPNon 08-12-2020 CNPN Telephone ([facility]) ANTONIA THOMSON ([id number]) 1940 F Date Time Provider Department 08/12/20 MIKAEL KHAN During your visit today, we recorded the following information about you: Asaf CHAPMAN 08/12/2020 9:40 AM Signed Patient's daughter came in the office and dropped off forms for medical records to be sent to Dr. Khan. Placed in provider's inbox. Christina Mcclelland Ma 08/15/2020 9:45 AM Signed Form faxed. Transmission ok. Allergies As of Date: 08/12/2020 Noted Allergy Reaction SHELLFISH DERIVED 07/04/2020 8 - GI Upset Date Reviewed: 08/09/2020 Reviewed by: Christina Mcclelland Ma - Fully Assessed Reason for Visit: Received Outside Medical Records [[id number]] Prescriptions as of 08/12/2020 Sig: ASCORBIC ACID (VITAMIN C) 500* Take 1 tablet by mouth once d* LYSINE 500 MG TABLET Take 1 tablet by mouth once d* CHOLECALCIFEROL (VITAMIN D3) * Take 2 capsules by mouth once* FOLIC ACID 400 MCG TABLET Take 1 tablet by mouth once d* ASPIRIN 81 MG TABLET,DELAYED * Take 1 tablet by mouth once d* MAGNESIUM 400 MG ( MAGNESIU* Take 1 capsule by mouth once * VITAMIN B COMPLEX TABLET Take 1 tablet by mouth once d* ATORVASTATIN 20 MG TABLET Take 20 mg by mouth once david* LOSARTAN 100 MG-HYDROCHLOROTH* Take 1 tablet by mouth once d* Problem List As Of Date 08/12/2020 Noted Resolved Mixed hyperlipidemia [E78.2] Hypertension [I10] DDD (degenerative disc disease), lumbar [M51.36]08/09/2020 Spondylosis of lumbar region without myelopathy* Encounter Status:Closed by CHRISTINA MCCLELLAND MA on 08/15/20 [facility] CNOVon 08-09-2020 CNOV Office Visit ([facility]) ANTONIA THOMSON ([id number]) 1940 F Date Time Provider Department 08/09/20 11:20 AM MIKAEL KHAN During your visit today, we recorded the following information about you: Temperature Pulse Respiration Blood pressure 98.9 degrees 71/minute 16/minute 162/86 Weight 90.9 kg Mikael Khan MD 08/11/2020 7:34 AM Addendum Antonia Thomson is a 79 year old female presenting for ER follow up She also needs new PCP Patient was in the emergency room 07/04/2020 with complaint of low back pain She had been taking some tylenol and motrin Does have known degenerative disc disease as well as degenerative arthritis Was treated with a round of Toradol and Dilaudid with improvement Was sent home with a few pills of [place] as well as a Medrol Dosepak She is doing good now She has no more pain Has some aches and pains HTN/HLD : She has been on the current medication for about 3 months or so Was on three different blood pressure meds for some time Had this switched when she saw the new docotr Has no CP, no SOB n HISTORIES: PAST MEDICAL HISTORY Diagnosis Date - DDD (degenerative disc disease), lumbar 08/09/2020 - Hypertension - Mixed hyperlipidemia - Spondylosis of lumbar region without myelopathy or radiculopathy 08/09/2020 PAST SURGICAL HISTORY Procedure Laterality Date - NONE No family history on file. Social History: Social History Tobacco Use - Smoking status: Former Smoker Types: Cigarettes - Smokeless tobacco: Never Used Substance Use Topics - Alcohol use: Not Currently - Drug use: Not on file Allergies: ALLERGIES Allergen Reactions - Shellfish Derived GI Upset Medications: atorvastatin (LIPITOR) 20 mg tablet Take 20 mg by mouth once daily. Losartan-hydroCHLORO thiazide 100-12.5 mg per tablet Take 1 tablet by mouth once daily. ascorbic acid, vitamin C, (VITAMIN C) 500 mg tablet Take 1 tablet by mouth once daily. lysine 500 mg tab Take 1 tablet by mouth once daily. Cholecalciferol, Vitamin D3, (VITAMIN D) 25 mcg (1,000 unit) cap Take 2 capsules by mouth once daily. folic acid 400 mcg tablet Take 1 tablet by mouth once daily. aspirin, enteric coated (ECOTRIN LOW STRENGTH) 81 mg EC tablet Take 1 tablet by mouth once daily. magnesium oxide 400 mg magnesium cap Take 1 capsule by mouth once daily. vitamin b complex tab Take 1 tablet by mouth once daily. REVIEW OF SYSTEMS GENERAL: No weight loss, malaise or fevers HEENT: Negative for frequent or significant headaches, No changes in hearing or vision, no nose bleeds or other nasal problems, Difficulty with hearing even with hearing aids, some right ear pain RESPIRATORY: Negative for cough, hemoptysis, wheezing, COPD, dyspnea or shortness of breath CARDIOVASCULAR: Negative for chest pain, leg swelling, hypertension, CHF or palpitations GI: No nausea, vomiting, or diarrhea, No heartburn or reflux symptoms and No constipation, no blood in the stools : No history of dysuria, frequency or incontinence MUSCULOSKELETAL: Negative for joint pain or swelling, back pain or muscle pain and No further back pain HEMATOLOGY/LYMPHOLOG Y: Negative for prolonged bleeding, bruising easily or swollen nodes NEURO: No history of headaches, syncope, paralysis, seizures or tremors PHYSICAL EXAMINATION: BP 162/86 Pulse 71 Temp 37.2 ?C (98.9 ?F) (Temporal Artery) Resp 16 Wt 90.9 kg (200 lb 6.4 oz) SpO2 96% General Appearance: Well appearing, alert, in no acute distress, well-hydrated, well nourished.. Ears: External ears normal, canals clear, small amount of cerumen noted in the right canal, clear otherwise with no issues with the eardrum. Neck: Supple, no adenopathy; thyroid symmetric, normal size, no bruits. Lungs: Lungs clear to auscultation. No wheezing, rhonchi, rales.. Heart: RRR without murmur, gallop, or rubs. No ectopy. Abdomen: Normal abdominal exam, Abdomen soft, non-tender. Bowel sounds normal. No masses, organomegaly. Extremities: No deformities, edema, skin discoloration, clubbing or cyanosis. Good capillary refill. . Musculoskeletal: No joint swelling, deformity, or tenderness, back?normal range of motion, no tenderness to palpation in the midline or paraspinals, normal strength sensation and reflexes in the lower extremities, negative straight leg raise. Peripheral Pulses: Normal. Psych: Appropriate mood and affect, maintains good eye contact, answers questions appropriately. ASSESSMENT/PLAN: 1. DDD (degenerative disc disease), lumbar - ICD9: 722.52, ICD10: M51.36 (primary diagnosis) 2. Spondylosis of lumbar region without myelopathy or radiculopathy - ICD9: 721.3, ICD10: M47.816 Back pain has completely resolved Does have known degenerative disc disease as well as arthritis Does try to remain as active as possible 3. Essential hypertension - I (more content not included)... Normal [facility] HEALTHon 07-04-2020 ALLIED HEALTH HNO ID: [id number] Author: Marti French (Ct) PRASHANTH Avila Service: Radiology Author Type: Clinical [place] Type: Allied Health Filed: 07/04/2020 12:39 PM Note Text: Radiology Service Progress Note PATIENT NAME: Antonia Thomson DATE OF SERVICE: July 04, 2020 TIME: 12:38 PM PATIENT IDENTITY VERIFICATION COMPLETED USING TWO (2) IDENTIFIERS: Name and Date of confirmed by patient verbally. FALL SCREENING: Has the patient had 2 falls in the last year or 1 fall with injury or currently using an Ambulatory Assistive Device (Walker, Cane, Wheelchair, Crutches, etc.)? Emergency Room Patient: Screened in ED PATIENT GENDER DATA: Female. status: : No status: NO. PATIENT RELEVANT IMPLANT DATA REVIEWED: Not Applicable RADIOLOGY DEPARTMENT: General X-ray: Exam(s) Completed: Spine X-Ray(s): Lumbar AP / LAT / L5-S1 PERIPHERAL IV DATA: Not applicable SIGNED BY: PRASHANTH Win July 04, 2020 12:38 PM [facility] ED NOTEon 07-04-2020 ED NOTE HNO ID: [id number] Author: Angelita TapiaRnBryanna Tony RN Service: ? Author Type: Registered Nurse Type: ED Notes Filed: 07/04/2020 1:21 PM Note Text: PT WAS AMBULATORY [facility] ED NOTE HNO ID: [id number] Author: Rosario (Rn) KIAH Sheriff Service: ? Author Type: Registered Nurse Type: ED Notes Filed: 07/04/2020 11:44 AM Note Text: Pt to ED with right sided lower back pain x3 weeks. Pt denies injury/trauma. PT has been taking Ibuprofen and Tylenol with relief, until last night when the pain worsened. Pt states she has trouble walking now and trouble lifting her right leg. [facility] ED PROV NOTEon 07-04-2020 ED PROV NOTE HNO ID: [id number] Author: Chloe Viveros MD Service: ? Author Type: Physician Type: ED Provider Notes Filed: 07/04/2020 1:19 PM Note Text: ED Provider Note Patient Name: Antonia Thomson SERVICE DATE: 07/04/20 History Patient presents with: Low Back Pain Patient is a 79-year-old female coming in with low back pain. She describes it on the right side she has been dealing with it for 3 weeks. It was mild and she could take cxne-ssy-rojmtdf medicine and it helped. Last night it got much worse. She took her ibuprofen without any relief of her symptoms. She describes it mainly in her right buttock it does not shoot down her leg she denies any numbness or tingling any loss of bowel or bladder function. On the triage note there was a question of weakness however patient states she is not weak she just had trouble lifting her leg secondary to pain. Patient has had some pain like this but never this severe. Patient denies any trauma. She denies any fevers chest pain or shortness of breath. PAST MEDICAL HISTORY Diagnosis Date - Hypertension No past surgical history on file. No family history on file. Social History Tobacco Use - Smoking status: Not on file Substance and Sexual Activity - Alcohol use: Not on file - Drug use: Not on file - Sexual activity: Not on file ALLERGIES Allergen Reactions - Shellfish Derived GI Upset Review of Systems Constitutional: Negative for fever. Respiratory: Negative for shortness of breath. Cardiovascular: Negative for chest pain. Gastrointestinal: Negative for abdominal pain and vomiting. All other systems reviewed and are negative. Physical Exam BP 149/102 Pulse 74 Temp (Src) 97.6 (Oral) Resp 18 Wt 200 lb (90.7kg) SpO2 95% O2 Therapy: Room Air Physical Exam Vitals and nursing note reviewed. Constitutional: General: She is not in acute distress. Appearance: She is not ill-appearing. HENT: Head: Normocephalic. Mouth/Throat: Mouth: Mucous membranes are moist. Cardiovascular: Rate and Rhythm: Normal rate and regular rhythm. Pulmonary: Effort: Pulmonary effort is normal. Breath sounds: Normal breath sounds. Abdominal: General: There is no distension. Palpations: Abdomen is soft. Tenderness: There is no abdominal tenderness. Musculoskeletal: Cervical back: Neck supple. Comments: Tenderness over the right SI joint. No pinpoint lumbar tenderness. Patient has 5 out of 5 strength bilateral lower extremities no saddle anesthesia. Skin: General: Skin is warm. Neurological: General: No focal deficit present. Mental Status: She is alert. Sensory: No sensory deficit. Motor: No weakness. Psychiatric: Mood and Affect: Mood normal. Diagnostic Testing ED Labs Ordered and Reviewed - No data to display XR LUMBAR GENERAL 3V AP/LAT/L5-S1 Final Result IMPRESSION: Mild scoliotic curvature and degenerative changes detailed in report. 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 Date/Time: Jul 04 2020 12:42P Dictated by : GIULIANA GASPAR MD This examination was interpreted and the report reviewed and electronically signed by: GIULIANA GASPAR MD on Jul 04 2020 12:44PM EST Procedures ED Course / Clinical Impression Clinical Impressions as of Jul 04 1318 Acute right-sided low back pain with right-sided sciatica Scoliosis of lumbar spine, unspecified scoliosis type MDM / Disposition / Plan Patient has no signs of acute cord syndrome. There is no weakness it is just pain. Patient was given Toradol and Dilaudid IM injections here and feeling much better. She was had an x-ray of her lumbar spine showing mild scoliotic curvature and degenerative changes detailed in the report. At this point patient will be discharged home. She is advised to return with any worsening symptoms or concerns any numbness or tingling any weakness of her legs any loss of bowel or bladder function. Patient is advised to follow with primary care and return if worse. The patient was DISCHARGED: Counseled patient and family regarding lab results AND radiology results AND need for follow-up. Discharged home with verbal and written instructions. They were instructed to return as needed for persistent or worsening symptoms or any new concerns. Condition at time of disposition: stable SIGNATURE: MD Chloe Staton MD 07/04/20 1319 Normal [facility] XR LUMBAR 3V AP/LAT/L5-S1on 07-04-2020 XR LUMBAR 3V AP/LAT/L5-S1 * * *Final Report* * * DATE OF EXAM: Jul 04 2020 12:37PM MDX 5228 - XR LUMBAR 3V AP/LAT/L5-S1 / PROCEDURE REASON: Back pain, < 6wks, no red flags, no prior management * * * * Physician Interpretation * * * * EXAMINATION: XR LUMBAR 3V AP/LAT/L5-S1 HISTORY: LOW BACK PAIN FOR PAST 2 WEEKS GOT WORSE LAST NIGHT. DIFFICULTY WALKING. Back pain, < 6wks, no red flags, no prior management. TECHNIQUE: XR LUMBAR 3V AP/LAT/L5-S1 Laterality: NOT APPLICABLE Number of different views (projections): 3 M: XB_1 COMPARISON: There are no prior relevant examinations available for comparison. RESULT: Counting reference: Lumbosacral junction. For the purposes of this report, L5-S1 is considered the last lumbar-type disc space and L4-5 is considered the level of the iliac crest. 3 Views of the lumbosacral spine with AP, lateral and cone-down radiographs demonstrate osteopenia, scoliotic curvature and multilevel degenerative change with vertebral body osteophytosis. There is intervertebral disc space narrowing at all lumbar levels but greatest at the lower 2 levels. There is hypertrophic facet change at the lower 3 levels. There are no compression fractures and alignment is well maintained. The soft tissues are unremarkable with aortoiliac calcification IMPRESSION: Mild scoliotic curvature and degenerative changes detailed in report. [employer] Diver: PSCB Transcribe Date/Time: Jul 04 2020 12:42P Dictated by : GIULIANA GASPAR MD This examination was interpreted and the report reviewed and electronically signed by: GIULIANA GASPAR MD on Jul 04 2020 12:44PM EST [id number] Normal [facility] CBC AND DIFFERENTIALon 11-03 % AUTOMATED IMMATURE GRAN 0.3 % Normal 0.0 - 0.9 [facility] Comment on above: Result Comment: Perc ent differential counts (%) should be interpreted in the context of the absolute cell counts (cells/L). Performed By: #### C BCDF #### [address] [address] % NEUTROPHIL 52.0 % Normal 40.0 - 80.0 [facility] Comment on above: Performed By: #### C BCDF #### [address] [address] Basophils/100 WBC (Bld) 0.07 x10E9/L Normal 0.00 - 0.1 0 [facility] Comment on above: Performed By: #### C BCDF #### [address] [address] Basophils/100 WBC (Bld) 1.0 % Normal 0.0 - 2.0 [facility] Comment on above: Performed By: #### C BCDF #### [address] [address] Eosinophils #/vol (Bld) 0.09 10*3/uL Normal 0.00 - 0.4 0 [facility] Comment on above: Performed By: #### C BCDF #### [address] [address] Eosinophils/100 WBC (Bld) 1.3 % Normal 0.0 - 6.0 [facility] Comment on above: Performed By: #### C BCDF #### [address] [address] Erythrocyte distribution width Ratio (RBC) 13.3 % Normal 11.5 - 14.5 [facility] Comment on above: Performed By: #### C BCDF #### [address] [address] Hematocrit Volume Fraction (Bld) 44.3 % Normal 36.0 - 46.0 [facility] Comment on above: Performed By: #### C BCDF #### [address] [address] Hemoglobin mass conc (Bld) 13.9 g/dL Normal 12.0 - 16.0 [facility] Comment on above: Performed By: #### C BCDF #### [address] [address] Lymphocytes #/vol (Bld) 2.50 10*3/uL Normal 0.80 - 3.0 0 [facility] Comment on above: Performed By: #### C BCDF #### [address] [address] Lymphocytes/100 WBC (Bld) 35.4 % Normal 13.0 - 44.0 [facility] Comment on above: Performed By: #### C BCDF #### [address] [address] MCHC mass conc (RBC) 31.4 g/dL Low 32.0 - 36.0 [facility] Comment on above: Performed By: #### C BCDF #### [address] [address] MCV Entitic volume (RBC) 93 fL Normal 80 - 100 [facility] Comment on above: Performed By: #### C BCDF #### [address] [address] Monocytes #/vol (Bld) 0.71 10*3/uL Normal 0.05 - 0.80 [facility] Comment on above: Performed By: #### C BCDF #### [address] [address] Monocytes/100 WBC (Bld) 10.0 % Normal 2.0 - 10.0 [facility] Comment on above: Performed By: #### C BCDF #### [address] [address] Neutrophils #/vol (Bld) 3.68 10*3/uL Normal 1.60 - 5.5 0 [facility] Comment on above: Performed By: #### C BCDF #### [address] [address] Platelets #/vol (Bld) 288 10*3/uL Normal 150 - 450 [facility] Comment on above: Performed By: #### C BCDF #### [address] [address] RBC #/vol (Bld) 4.75 x10E12/L Normal 4.00 - 5.20 [facility] Comment on above: Performed By: #### C BCDF #### [address] [address] WBC #/vol (Bld) 7.1 10*3/uL Normal 4.4 - 11.3 [facility] Comment on above: Performed By: #### C BCDF #### [address] [address] COMPREHENSIVE PANELon 2018 Albumin mass conc 4.2 g/dL Normal 3.4 - 5.0 [facility] Comment on above: Performed By: #### C MP #### [address] [address] ALP enzyme act/vol 70 U/L Normal 33 - 136 [facility] Comment on above: Performed By: #### C MP #### [address] [address] ALT enzyme act/vol 20 U/L Normal 7 - 45 [facility] Comment on above: Result Comment: Latonia ents treated with Sulfasalazine may generate falsely decreased results for ALT. Performed By: #### C MP #### [address] [address] Anion gap molar conc 13 mmol/L Normal 10 - 20 [facility] Comment on above: Performed By: #### C MP #### [address] [address] AST enzyme act/vol 22 U/L Normal 9 - 39 [facility] Comment on above: Performed By: #### C MP #### [address] [address] Bilirubin mass conc 0.8 mg/dL Normal 0.0 - 1.2 [facility] Comment on above: Performed By: #### C MP #### [address] [address] Calcium mass conc 10.2 mg/dL Normal 8.6 - 10.3 [facility] Comment on above: Performed By: #### C MP #### [address] [address] Chloride molar conc 100 mmol/L Normal 98 - 107 [facility] Comment on above: Performed By: #### C MP #### [address] [address] Creatinine mass conc 0.84 mg/dL Normal 0.50 - 1.05 [facility] Comment on above: Performed By: #### C MP #### [address] [address] GFR- AM. >60 Normal >60 [facility] Comment on above: Result Comment: CALC ULATIONS OF ESTIMATED GFR ARE PERFORMED USING THE MDRD STUDY EQUATION FOR THE IDMS-TRACEABLE CREATININE METHODS. CLIN CHEM 2007;53:766-72 Performed By: #### C MP #### [address] [address] GFR-NON AM. >60 Normal >60 [facility] Comment on above: Performed By: #### C MP #### [address] [address] Glucose mass conc 96 mg/dL Normal 74 - 99 [facility] Comment on above: Performed By: #### C MP #### [address] [address] HCO3 molar conc (Bld) 29 mmol/L Normal 21 - 32 [facility] Comment on above: Performed By: #### C MP #### [address] [address] Potassium molar conc 4.1 mmol/L Normal 3.5 - 5.3 [facility] Comment on above: Performed By: #### C MP #### [address] [address] Protein mass conc 7.5 g/dL Normal 6.4 - 8.2 [facility] Comment on above: Performed By: #### C MP #### [address] [address] Sodium molar conc 138 mmol/L Normal 136 - 145 [facility] Comment on above: Performed By: #### C MP #### [address] [address] Urea nitrogen mass conc 20 mg/dL Normal 6 - 23 [facility] Comment on above: Performed By: #### C MP #### [address] [address] LIPID PANEL (CORONARY RISK 2 )on 11-03-2018 Cholesterol in HDL mass conc 71.0 mg/dL Normal [facility] Comment on above: Result Comment: . AGE VERY LOW LOW NORMAL HIGH 0-19 Y < 35 < 40 40-45 ---- 20-24 Y ---- < 40 >45 ---- >24 Y ---- < 40 40-60 >60 . Performed By: #### L IPID #### [address] [address] Cholesterol in LDL mass conc 105 mg/dL High 0 - 99 [facility] Comment on above: Result Comment: . NEAR BORD AGE DESIRABLE OPTIMAL HIGH HIGH VERY HIGH 0-19 Y 0 - 109 --- 110-129 >/= 130 ---- 20-24 Y 0 - 119 --- 120-159 >/= 160 ---- >24 Y 0 - 99 100-129 130-159 160-189 >/=190 . Performed By: #### L IPID #### [address] [address] Cholesterol in VLDL mass conc 23 mg/dL Normal 0 - 40 [facility] Comment on above: Performed By: #### L IPID #### [address] [address] Cholesterol mass conc 199 mg/dL Normal 0 - 199 [facility] Comment on above: Result Comment: . AGE DESIRABLE BORDERLINE HIGH HIGH 0-19 Y 0 - 169 170 - 199 >/= 200 20-24 Y 0 - 189 190 - 224 >/= 225 >24 Y 0 - 199 200 - 239 >/= 240 All ranges are based on fasting samples. Specific therapeutic targets will vary based on patient-specific cardiac risk. . Pediatric guidelines reference:Pediatrics 2011, 128(S5). Adult guidelines reference: NCEP ATPIII Guidelines, RODNEY 2001, 258:2486-97 . Venipuncture immediately after or during the administration of Metamizole may lead to falsely low results. Testing should be performed immediately prior to Metamizole dosing. Performed By: #### L IPID #### [address] [address] Cholesterol.total/Salud sterol in HDL mass ratio 2.8 {ratio} Normal [facility] Comment on above: Result Comment: REF VALUES DESIRABLE < 3.4 HIGH RISK > 5.0 Performed By: #### L IPID #### [address] [address] Triglyceride mass conc 117 mg/dL Normal 0 - 149 [facility] Comment on above: Result Comment: . AGE DESIRABLE BORDERLINE HIGH HIGH VERY HIGH 0 D-90 D 19 - 174 ---- ---- ---- 91 D- 9 Y 0 - 74 75 - 99 >/= 100 ---- 10-19 Y 0 - 89 90 - 129 >/= 130 ---- 20-24 Y 0 - 114 115 - 149 >/= 150 ---- >24 Y 0 - 149 150 - 199 200- 499 >/= 500 . Venipuncture immediately after or during the administration of Metamizole may lead to falsely low results. Testing should be performed immediately prior to Metamizole dosing. Performed By: #### L IPID #### [address] [address] MAGNESIUMon 11-03-2018 Magnesium mass conc 2.30 mg/dL Normal 1.60 - 2.40 [facility] Comment on above: Performed By: #### M G #### [address] [address] TSHon 11-03-2018 Thyrotropin Qn 1.13 m[IU]/L Normal 0.44 - 3.98 [facility] Comment on above: Result Comment: TSH testing is performed using different testing methodology at [facility] than at other [facility]. Direct result comparisons should only be made within the same method. Performed By: #### T SH2 #### [address] [address] VITAMIN D, 25-HYDROXYon 10-06 VITAMIN D, 25-HYDROXY 52 ng/mL Normal [facility] Comment on above: Result Comment: . DEFICIENCY: < 20 NG/ML INSUFFICIENCY: 20-29 NG/ML OPTIMUM LEVEL: 30-80 NG/ML POSSIBLE TOXICITY: > 80 NG/ML THIS ASSAY ACCURATELY QUANTIFIES THE SUM OF VITAMIN D3, 25-HYDROXY AND VIT D2,25-HYDROXY. Performed By: #### V TDOH #### [address] [address] CBCon 11-28-2017 Erythrocyte distribution width Auto Ratio (RBC) 13.1 % Normal 12.0-15.4 [facility] Comment on above: Performed By: #### 2 [id number] ####[facility] [address] [place] [address] Erythrocytes (RBC) 4.86 10*6/uL Normal 3.85-5.10 [facility] Comment on above: Performed By: #### 2 [id number] ####[facility] [address] [place] [address] Hematocrit (HCT) 45.0 % Normal 36.5-46.6 [facility] Comment on above: Performed By: #### 2 [id number] ####[facility] [address] [facility] [address] Hemoglobin mass conc (Bld) 14.6 g/dL Normal 11.8-15.3 [facility] Comment on above: Performed By: #### 2 573152 ####[facility] [address] [place] [address] MCH 30.0 pg Normal 27.5-33.0 [facility] Comment on above: Performed By: #### 2 [id number] ####[facility] [address] [place] [place] [address] MCHC mass conc (RBC) 32.4 g/dL Normal 30.1-35.0 [facility] Comment on above: Performed By: #### 2 064646 ####[facility] [address] [place] [address] MCV 92.6 fL Normal 85.4-100.0 [facility] Comment on above: Performed By: #### 2 857945 ####[facility] [address] [place] [address] NRBC Absolute 0.00 10*3/uL [facility] Comment on above: Performed By: #### 2 394107 ####[facility] [address] [place] [address] NRBC Automated 0.0 /100{WBCs} Normal [facility] Comment on above: Performed By: #### 2 926377 ####[facility] [address] [place] [address] Platelet mean volume (PMV) 11.2 fL Normal 9.9-12.1 [facility] Comment on above: Performed By: #### 2 689991 ####[facility] [address] [place] [address] Platelets 285 10*3/uL Normal 155-404 [facility] Comment on above: Performed By: #### 2 160214 ####[facility] [address] [place] [address] RDW SD 44.7 fL Normal 39.3-48.6 [facility] Comment on above: Performed By: #### 2 778250 ####[facility] [address] [place] [address] WBC (Leukocytes) 7.3 10*3/uL Normal 4.4-9.9 [facility] Comment on above: Performed By: #### 2 412115 ####[facility] [address] [place] [address] Comprehensive Metabolic Pane spencer 11-28-2017 Alanine aminotransferase (ALT) 19 U/L Normal 7-45 [facility] Comment on above: Performed By: #### 1 101510 ####[facility] [address] [place] [address] Albumin 4.2 g/dL Normal 3.4-5.0 [facility] Comment on above: Performed By: #### 1 496765 ####[facility] [address] [place] [address] Albumin/Globulin Ratio 1.3 {ratio} Normal 0.9-2.4 [facility] Comment on above: Performed By: #### 1 729019 ####[facility] [address] [place] [address] Alkaline phosphatase (ALP) 76 U/L Normal 45-117 [facility] Comment on above: Performed By: #### 1 789673 ####[facility] [address] [place] [address] Anion gap 11 mmol/L Normal 10-20 [facility] Comment on above: Performed By: #### 1 455772 ####[facility] [address] [place] [address] Aspartate aminotransferase (AST) 22 U/L Normal 13-39 [facility] Comment on above: Performed By: #### 1 358948 ####[facility] [address] [place] [address] Bicarbonate (HCO3) 28 mmol/L Normal 21-32 [facility] Comment on above: Performed By: #### 1 073336 ####[facility] [address] [place] [address] Bilirubin (total) 0.7 mg/dL Normal 0.0-1.2 [facility] Comment on above: Performed By: #### 1 750950 ####[facility] [address] [place] [address] BUN/Creatinine Ratio 22 mg/mg Normal 5-25 [facility] Comment on above: Performed By: #### 1 077185 ####[facility] [address] [place] [address] Calcium 10.0 mg/dL Normal 8.6-10.3 [facility] Comment on above: Performed By: #### 1 621524 ####[facility] [address] [place] [address] Chloride 101 mmol/L Normal 98-107 [facility] Comment on above: Performed By: #### 1 681744 ####[facility] [address] [place] [address] Creatinine 0.77 mg/dL Normal 0.50-1.05 [facility] Comment on above: Performed By: #### 1 141815 ####[facility] [address] [place] [address] eGFR (MDRD) mL/min/{1.73_m2} Normal [facility] Comment on above: Result Comment: Inte rpretation for Chronic Kidney Disease:Stages 1&2 >60 Healthy or potential kidney damage.Mild decrease of GFR.Stage 3 30-59 Moderate decrease of GFR.Stage 4 15-29 Severe decrease of GFR.Stage 5 <15 Kidney failure or on dialysis. Performed By: #### 1 [id number] ####[facility] [address] [place] [address] Glucose mass conc 108 mg/dL High 70-100 [facility] Comment on above: Performed By: #### 1 402534 ####[facility] [address] [place] [address] Potassium molar conc 3.8 mmol/L Normal 3.5-5.1 [facility] Comment on above: Performed By: #### 1 308179 ####[facility] [address] [place] [address] Protein 7.5 g/dL Normal 6.4-8.2 [facility] Comment on above: Performed By: #### 1 227595 ####[facility] [address] [place] [address] Sodium 136 mmol/L Normal 136-145 [facility] Comment on above: Performed By: #### 1 159964 ####[facility] [address] [place] [address] Urea nitrogen 17 mg/dL Normal 6-23 [facility] Comment on above: Performed By: #### 1 239086 ####[facility] [address] [place] [address] Lipid Panelon 11-28-2017 Cholesterol 193 mg/dL Normal <200 [facility] Comment on above: Performed By: #### 1 388301 ####[facility] [address] [place] [address] Cholesterol in VLDL mass conc 30 mg/dL Abnormal <30 [facility] Comment on above: Performed By: #### 1 548047 ####[facility] [address] [place] [address] Cholesterol to HDL Ratio 3.0 {ratio} Normal [facility] Comment on above: Performed By: #### 1 540687 ####[facility] [address] [place] [address] HDL Cholesterol 65 mg/dL Normal [facility] Comment on above: Result Comment: Age Normal Mod Risk High Risk5-9 >46 38-46 <3810-14 >44 40-44 <4015-19 >42 38-42 <38Adult >49 Performed By: #### 1 041459 ####[facility] [address] [place] [address] LDL Cholesterol 98 mg/dL Normal <130 [facility] Comment on above: Performed By: #### 1 [id number] ####[facility] [address] [place] [address] Triglyceride 148 mg/dL Normal <150 [facility] Comment on above: Result Comment: 150- 199 Borderline [id number] High>500 Very High Performed By: #### 1 [id number] ####[facility] [address] [place] [address] TSHon 11-28-2017 Thyroid stimulating hormone (TSH) 1.22 mU/L Normal 0.44-3.98 [facility] Comment on above: Performed By: #### 1 [id number] ####[facility] [address] [place] [address] Vitamin D, 25 Hydroxyon -2 Vitamin D, 25 Hydroxy 43 ng/mL Normal [facility] Healthcare Comment on above: Result Comment: DEFI CIENCY <20INSUFFICIENCY 20-29OPTIMUM LEVEL 30-80POSSIBLE TOXICITY >80 Performed By: #### V ITD ####[facility] [address] [facility] [place] [address] CBCon 05-04-2017 Erythrocyte distribution width Auto Ratio (RBC) 13.0 % Normal 12.0-15.4 [facility] Comment on above: Performed By: #### 2 [id number] ####[facility] [address] [facility] [place] [address] Erythrocytes (RBC) 4.75 10*6/uL Normal 3.85-5.10 [facility] Comment on above: Performed By: #### 2 349129 ####[facility] [address] [facility] [place] [address] Hematocrit (HCT) 44.1 % Normal 36.5-46.6 [facility] Comment on above: Performed By: #### 2 575493 ####[facility] [address] [facility] [place] [address] Hemoglobin mass conc (Bld) 14.4 g/dL Normal 11.8-15.3 [facility] Comment on above: Performed By: #### 2 149973 ####[facility] [address] [facility] [place] [address] MCH 30.3 pg Normal 27.5-33.0 [facility] Comment on above: Performed By: #### 2 524369 ####[facility] [address] [facility] [place] [address] MCHC mass conc (RBC) 32.7 g/dL Normal 30.1-35.0 [facility] Comment on above: Performed By: #### 2 517190 ####[facility] [address] [facility] [place] [address] MCV 92.8 fL Normal 85.4-100.0 [facility] Comment on above: Performed By: #### 2 410158 ####[facility] [address] [place] [address] NRBC Absolute 0.00 10*3/uL Normal [facility] Comment on above: Performed By: #### 2 248865 ####[facility] [address] [place] [address] NRBC Automated 0.0 /100{WBCs} Normal [facility] Comment on above: Performed By: #### 2 [id number] ####[facility] [address] [place] [address] Platelet mean volume (PMV) 11.0 fL Normal 9.9-12.1 [facility] Comment on above: Performed By: #### 2 438481 ####[facility] [address] [place] [address] Platelets 267 10*3/uL Normal 155-404 [facility] Comment on above: Performed By: #### 2 090844 ####[facility] [address] [place] [address] RDW SD 44.2 fL Normal 39.3-48.6 [facility] Comment on above: Performed By: #### 2 289398 ####[facility] [address] [place] [address] WBC (Leukocytes) 6.7 10*3/uL Normal 4.4-9.9 [facility] lthcare Comment on above: Performed By: #### 2 241240 ####[facility] [address] [place] [address] Comprehensive Metabolic Pane spencer 05-04-2017 Alanine aminotransferase (ALT) 19 U/L Normal 7-45 [facility] Comment on above: Performed By: #### 1 899404 ####[facility] [address] [place] [address] Albumin 4.2 g/dL Normal 3.4-5.0 [facility] Comment on above: Performed By: #### 1 036163 ####[facility] [address] [place] [address] Albumin/Globulin Ratio 1.4 {ratio} Normal 0.9-2.4 [facility] Comment on above: Performed By: #### 1 565393 ####[facility] [address] [place] [address] Alkaline phosphatase (ALP) 71 U/L Normal 45-117 [facility] Healthcare Comment on above: Performed By: #### 1 858312 ####[facility] [address] [place] [address] Anion gap 12 mmol/L Normal 10-20 [facility] Healthcare Comment on above: Performed By: #### 1 670630 ####[facility] [address] [place] [address] Aspartate aminotransferase (AST) 23 U/L Normal 13-39 [facility] Comment on above: Performed By: #### 1 332293 ####[facility] [address] [place] [address] Bicarbonate (HCO3) 28 mmol/L Normal 21-32 [facility] Comment on above: Performed By: #### 1 279953 ####[facility] [address] [place] [address] Bilirubin (total) 0.6 mg/dL Normal 0.0-1.2 [facility] Comment on above: Performed By: #### 1 885295 ####[facility] [address] [place] [address] BUN/Creatinine Ratio 21 mg/mg Normal 5-25 [facility] Healthcare Comment on above: Performed By: #### 1 229239 ####[facility] [address] [place] [address] Calcium 9.5 mg/dL Normal 8.6-10.3 [facility] Healthcare Comment on above: Performed By: #### 1 920319 ####[facility] [address] [place] [address] Chloride 103 mmol/L Normal 98-107 [facility] Healthcare Comment on above: Performed By: #### 1 752831 ####[facility] [address] [place] [address] Creatinine 0.87 mg/dL Normal 0.50-1.05 [facility] Comment on above: Performed By: #### 1 740422 ####[facility] [address] [place] [address] eGFR (MDRD) mL/min/{1.73_m2} Normal [facility] Comment on above: Result Comment: Inte rpretation for Chronic Kidney Disease:Stages 1&2 >60 Healthy or potential kidney damage.Mild decrease of GFR.Stage 3 30-59 Moderate decrease of GFR.Stage 4 15-29 Severe decrease of GFR.Stage 5 <15 Kidney failure or on dialysis. Performed By: #### 1 452104 ####[facility] [address] [place] [address] Glucose mass conc 104 mg/dL High 70-100 [facility] Comment on above: Performed By: #### 1 346026 ####[facility] [address] [place] [address] Potassium molar conc 4.0 mmol/L Normal 3.5-5.1 [facility] Comment on above: Performed By: #### 1 083522 ####[facility] [address] [place] [address] Protein 7.3 g/dL Normal 6.4-8.2 [facility] Comment on above: Performed By: #### 1 356024 ####[facility] [address] [place] [address] Sodium 139 mmol/L Normal 136-145 [facility] Comment on above: Performed By: #### 1 985320 ####[facility] [address] [place] [address] Urea nitrogen 18 mg/dL Normal 6-23 [facility] are Comment on above: Performed By: #### 1 262492 ####[facility] [address] [place] [address] Lipid Panelon 05-04-2017 Cholesterol 174 mg/dL Normal <200 [facility] Comment on above: Performed By: #### 1 304623 ####[facility] [address] [place] [address] Cholesterol in VLDL mass conc 23 mg/dL Normal <30 [facility] Comment on above: Performed By: #### 1 545848 ####[facility] [address] [place] [address] Cholesterol to HDL Ratio 2.7 {ratio} Normal [facility] Comment on above: Performed By: #### 1 981506 ####[facility] [address] [place] [address] HDL Cholesterol 64 mg/dL Normal [facility] Comment on above: Result Comment: Age Normal Mod Risk High Risk5-9 >46 38-46 <3810-14 >44 40-44 <4015-19 >42 38-42 <38Adult >49 Performed By: #### 1 106301 ####[facility] [address] [place] [address] LDL Cholesterol 87 mg/dL Normal <130 [facility] Comment on above: Performed By: #### 1 109178 ####[facility] [address] [place] [address] Triglyceride 113 mg/dL Normal <150 [facility] Comment on above: Result Comment: 150- 199 Borderline [id number] High>500 Very High Performed By: #### 1 455810 ####[facility] [address] [place] [address] TSHon 05-04-2017 Thyroid stimulating hormone (TSH) 1.09 mU/L Normal 0.44-3.98 [facility] Healthcare Comment on above: Performed By: #### 1 058621 ####[facility] [address] [place] [address] Vital Signs Date Time Vital Sign Value Performing Clinician Erwin ritchie 04-08-2023 18:51-0400 Body height 162.56 cm [facility] 04-08-2023 18:51-0400 Body mass index (BMI) [Ratio] 33.6 kg/m2 [facility] 04-08-2023 18:51-0400 Body temperature 97 [degF] [facility] 04-08-2023 18:51-0400 Body weight 88.9 kg [facility] 04-08-2023 18:51-0400 Diastolic blood pressure 70 mm[Hg] [facility] 04-08-2023 18:51-0400 Heart rate 85 /min [facility] 04-08-2023 18:51-0400 Respiratory rate 18 /min [facility] 04-08-2023 18:51-0400 SaO2% (BldA) [Mass fraction] 96 % [facility] 04-08-2023 18:51-0400 Systolic blood pressure 140 mm[Hg] [facility] 05-04-2022 17:56-0500 Body height 162.56 cm [facility] Work Phone: 05-04-2022 17:56-0500 Body mass index (BMI) [Ratio] 35.2 kg/m2 [facility] Work Phone: 05-04-2022 17:56-0500 Body temperature 97.5 [degF] [facility] Work Phone: 05-04-2022 17:56-0500 Body weight 92.98 kg [facility] Work Phone: 05-04-2022 17:56-0500 Diastolic blood pressure 70 mm[Hg] [facility] Work Phone: 05-04-2022 17:56-0500 Heart rate 64 /min [facility] Work Phone: 05-04-2022 17:56-0500 Respiratory rate 18 /min [facility] Work Phone: 05-04-2022 17:56-0500 SaO2% (BldA) [Mass fraction] 97 % [facility] Work Phone: 05-04-2022 17:56-0500 Systolic blood pressure 148 mm[Hg] [facility] Work Phone: Encounters Encounter Date Encounter Type Care Provider Facility Start: 02-24-2025 End: 02-24-2025 Emergency department patient visit ADALID REYES Facility:[facility] Start: 07-13-2024 End: 07-13-2024 ambulatory Jeffreybren Leiva RHETT Facility:[facility] Start: 04-08-2023 End: 04-08-2023 ambulatory [facility] Work Phone: Start: 04-08-2023 End: 04-08-2023 Patient encounter procedure [facility] Work Phone: Start: 05-04-2022 End: 05-04-2022 ambulatory [facility] Work Phone: Start: 05-04-2022 End: 05-04-2022 Patient encounter procedure [facility] Start: 11-28-2017 Patient encounter CHUCKXANDER LUATAWANA guidryty:1527 Start: 05-04-2017 Patient encounter CHUCK LUATAWANA guidryty:[id number] Plan of Treatment Date Care Activity Detail Author Start: 05-04-2022 Vitamin D, 1,25-dihy droxy measurement [facility] Work Phone: Vitamin D, 1,25-dihy droxy measurement [facility] Work Phone: Payers Date Payer Category Payer Self-pay [id number] 2016 Unknown [id number] 2007 Medicare [id number] Medicare [id number] Unknown [id number] Social History Date Type Detail Facility Tobacco smoking stat [facility] Unknown if ever smoked [facility] Work Phone: Start: 1940 Sex Assigned At Female [facility] Progress note 08-09-2020 Note Date & Type Note Facility 08-09-2020 Note HNO ID: [id number] Author: Christina Mcclelland Ma Service: ? Author Type: ? Type: Progress Notes Filed: 08/09/2020 11:55 AM Note Text: ANNUAL PCP TEAM CHRONIC DISEASE VISIT Completed HEPATITIS C SCREENING Completed BP CONTROLLED (<130/80) Completed DTAP,TDAP,TD(1 - Tdap) Completed DIABETES SCREEN Completed COLORECTAL CANCER SCREENING Completed SHINGRIX VACCINE(1 of 2) Completed BONE DENSITY Completed ADVANCE DIRECTIVE DISCUSSION Completed PNEUMOVAX AGE 65 AND OVER WITH 5YR LOOKBACK(1) Completed INFLUENZA(1) Completed [facility] Progress note 08-09-2020 Note Date & Type Note Facility 08-09-2020 Note HNO ID: [id number] Author: Mikael Khan Service: ? Author Type: Physician Type: Progress Notes Filed: 08/11/2020 7:34 AM Note Text: Antonia Thomson is a 79 year old female presenting for ER follow up She also needs new PCP Patient was in the emergency room 07/04/2020 with complaint of low back pain She had been taking some tylenol and motrin Does have known degenerative disc disease as well as degenerative arthritis Was treated with a round of Toradol and Dilaudid with improvement Was sent home with a few pills of [place] as well as a Medrol Dosepak She is doing good now She has no more pain Has some aches and pains HTN/HLD : She has been on the current medication for about 3 months or so Was on three different blood pressure meds for some time Had this switched when she saw the new docotr Has no CP, no SOB n HISTORIES: PAST MEDICAL HISTORY Diagnosis Date - DDD (degenerative disc disease), lumbar 08/09/2020 - Hypertension - Mixed hyperlipidemia - Spondylosis of lumbar region without myelopathy or radiculopathy 08/09/2020 PAST SURGICAL HISTORY Procedure Laterality Date - NONE No family history on file. Social History: Social History Tobacco Use - Smoking status: Former Smoker Types: Cigarettes - Smokeless tobacco: Never Used Substance Use Topics - Alcohol use: Not Currently - Drug use: Not on file Allergies: ALLERGIES Allergen Reactions - Shellfish Derived GI Upset Medications: atorvastatin (LIPITOR) 20 mg tablet Take 20 mg by mouth once daily. Losartan-hydroCHLOROthiazide 100-12.5 mg per tablet Take 1 tablet by mouth once daily. ascorbic acid, vitamin C, (VITAMIN C) 500 mg tablet Take 1 tablet by mouth once daily. lysine 500 mg tab Take 1 tablet by mouth once daily. Cholecalciferol, Vitamin D3, (VITAMIN D) 25 mcg (1,000 unit) cap Take 2 capsules by mouth once daily. folic acid 400 mcg tablet Take 1 tablet by mouth once daily. aspirin, enteric coated (ECOTRIN LOW STRENGTH) 81 mg EC tablet Take 1 tablet by mouth once daily. magnesium oxide 400 mg magnesium cap Take 1 capsule by mouth once daily. vitamin b complex tab Take 1 tablet by mouth once daily. REVIEW OF SYSTEMS GENERAL: No weight loss, malaise or fevers HEENT: Negative for frequent or significant headaches, No changes in hearing or vision, no nose bleeds or other nasal problems, Difficulty with hearing even with hearing aids, some right ear pain RESPIRATORY: Negative for cough, hemoptysis, wheezing, COPD, dyspnea or shortness of breath CARDIOVASCULAR: Negative for chest pain, leg swelling, hypertension, CHF or palpitations GI: No nausea, vomiting, or diarrhea, No heartburn or reflux symptoms and No constipation, no blood in the stools : No history of dysuria, frequency or incontinence MUSCULOSKELETAL: Negative for joint pain or swelling, back pain or muscle pain and No further back pain HEMATOLOGY/LYMPHOLOGY: Negative for prolonged bleeding, bruising easily or swollen nodes NEURO: No history of headaches, syncope, paralysis, seizures or tremors PHYSICAL EXAMINATION: BP 162/86 Pulse 71 Temp 37.2 ?C (98.9 ?F) (Temporal Artery) Resp 16 Wt 90.9 kg (200 lb 6.4 oz) SpO2 96% General Appearance: Well appearing, alert, in no acute distress, well-hydrated, well nourished.. Ears: External ears normal, canals clear, small amount of cerumen noted in the right canal, clear otherwise with no issues with the eardrum. Neck: Supple, no adenopathy; thyroid symmetric, normal size, no bruits. Lungs: Lungs clear to auscultation. No wheezing, rhonchi, rales.. Heart: RRR without murmur, gallop, or rubs. No ectopy. Abdomen: Normal abdominal exam, Abdomen soft, non-tender. Bowel sounds normal. No masses, organomegaly. Extremities: No deformities, edema, skin discoloration, clubbing or cyanosis. Good capillary refill. . Musculoskeletal: No joint swelling, deformity, or tenderness, back?normal range of motion, no tenderness to palpation in the midline or paraspinals, normal strength sensation and reflexes in the lower extremities, negative straight leg raise. Peripheral Pulses: Normal. Psych: Appropriate mood and affect, maintains good eye contact, answers questions appropriately. ASSESSMENT/PLAN: 1. DDD (degenerative disc disease), lumbar - ICD9: 722.52, ICD10: M51.36 (primary diagnosis) 2. Spondylosis of lumbar region without myelopathy or radiculopathy - ICD9: 721.3, ICD10: M47.816 Back pain has completely resolved Does have known degenerative disc disease as well as arthritis Does try to remain as active as possible 3. Essential hypertension - ICD9: 401.9, ICD10: I10 Blood pressure slightly elevated today Usually runs quite good at home and she will start checking more regularly Follow-up in 3 months 4. Mixed hyperlipidemia - ICD9: 272.2, ICD10: E78.2 Continue with the Lipitor We will try to get old records as she did have blood work d (more content not included)... [facility] Evaluation note Note Date & Type Note Facility Evaluation note Diagnosis Onset Date Hyperlipidemia acute Hypertension [facility] Work Phone: Summary Purpose Family History No Family History Records FoundNo Family History Records FoundNo Family History Records FoundNo Family History Records FoundNo Family History Records FoundNo Family History Records Found Advance Directives No Advanced Directives Records FoundNo Advanced Directives Records FoundNo Advanced Directives Records FoundNo Advanced Directives Records FoundNo Advanced Directives Records FoundNo Advanced Directives Records Found Chief Complaint and Reason for Visit Chief Complaint medication refills Reason for Visit Hyperlipidemia Hypertension Additional Source Comments INFORMATION SOURCE (unrecogn ized section and content) DATE CREATED AUTHOR 01/01/2018 [facility] DATE CREATED AUTHOR AUTHOR'S ORGANIZ ATION [facility]/09[facility] DATE CREATED AUTHOR AUTHOR'S ORGANIZ ATION 07/04/2020 [facility] DATE CREATED AUTHOR AUTHOR'S ORGANIZ ATION 07/04/2021 [facility] DATE CREATED AUTHOR AUTHOR'S ORGANIZ ATION 08/01/2024 [facility] DATE CREATED AUTHOR AUTHOR'S ORGANIZ ATION 02/25/2025 [facility] Goals (unrecognized section and content) Goals may be documented in a n alternate sectionGoals may be documented in an alternate section Care Teams (unrecognized sec tion and content) Team Status: Active Member Role Status Dates Jeffrey Leiva ARTIFICIAL INTELLIGENCE SPECIALIST, ARTIFICIAL INTELLIGENCE SPECIALIST-C Primary Care Provider Active Team Status: Inactive Member Role Status Dates Jeffrey Leiva ARTIFICIAL INTELLIGENCE SPECIALIST, ARTIFICIAL INTELLIGENCE SPECIALIST-C Primary Care Pr ovider, Attending Provider, Referring Provider Active FOR RECORDS PERTAINING TO PATIENTS WHO ARE OR HAVE BEEN ENROLLED IN A CHEMICAL DEPENDENCY/SUBSTANCEABUSE PROGRAM, SOME INFORMATION MAY BE OMITTED. This clinical summary was aggregated from multiple sources. Caution should be exercised in using it in the provision of clinical care. This summary normalizes information from multiple sources, and as a consequence, information in this document may materially change the coding, format and clinical context of patient data. In addition, data may be omitted in some cases. CLINICAL DECISIONS SHOULD BE BASED ON THE PRIMARY CLINICAL RECORDS. [employer] provides no warranty or guarantee of the accuracy or completeness of information in this document.
[2025-05-13 22:26] LABS: Hematocrit 46.4 % (37-47); Hemoglobin 14.9 g/dL (12.0-15.0); Immature Granulocytes Count 0.080 X10^3/uL (0.0-0.0); Mean Corp Hgb Conc 32.1 g/dL (32-36); Mean Corpuscular Volume 92.8 fL (81-99); Mean Platelet Vol. 10.9 fl (6.2-12.0); NRBC Flagged by Analyzer 0 % (0-5); Platelet Count 306 K/mm3 (150-450); RBC Distribution Width CV 13.3 % (11.6-14.6); RBC Distribution Width SD 45.2 fl (35.1-43.9); Red Blood Count 5.00 M/mm3 (4.2-5.4); White Blood Count 10.7 K/mm3 (4.4-11.0)
[2025-05-13 23:05] LABS: AST(SGOT) 26 U/L (<=31); Alanine Aminotransfer ALT/SGPT 23 U/L (<=34); Albumin, Serum 4.2 g/dL (3.4-4.8); Alkaline Phosphatase 72 U/L (35-104); Anion Gap 11 (5-15); BUN 21 mg/dL (4-19); BUN/Creat Ratio 24.3 RATIO (10-20); Calcium,Total 10.2 mg/dL (7.6-11.0); Carbon Dioxide 27.1 mmol/L (21.0-32.0); Chloride 98 mmol/L (98-108); Cholesterol 184 mg/dL (<=200); Globulin 3.1 g/dL (2.2-4.2); Glucose 95 mg/dL (70-99); Low Density Lipoprotein Calc. 93 mg/dL; Potassium 4.1 mmol/L (3.3-5.1); Triglycerides 147 mg/dL; Very Low Density Lipoprotein 29 mg/dL (5-40); Vitamin B12 1209 pg/mL (180-914); cholesterol:hdl ratio screen 2.78
== END | disposition home or self-care (01) ==
PROVIDERS: PCP Nurse Practitioner; Referring Provider Nurse Practitioner; Visit Provider Nurse Practitioner
DX: J18.9 Pneumonia, unspecified organism (principal); I10 Essential (primary) hypertension; E78.2 Mixed hyperlipidemia
CPT/HCPCS: 80053; 80061; 82607; 85025